=== PATIENT | male | born 1935 | race Caucasian/White ===

== ENCOUNTER 2018-05-14 15:08 | Inpatient (IN) | payer MEDICARE, OTHER ==
[2018-05-14 15:41] LABS: CHLORIDE,CL 104 mmol/L (98-107); SODIUM,NA 137 mmol/L (136-145)
--- NOTE | 2018-05-14 16:04 | PCM.HP ---
H&P History of Present Illness - General Date of Service: 05/14/18 Admit Problem/Dx: Admission Diagnosis/Problem Admission Diagnosis/Problem Congestive heart failure Source of Information: Patient, EMS Notes Reviewed History Limitations: Reports: No Limitations - History of Present Illness Initial Comments - Free Text/Narative: Patient is admitted for CHF acute on chronic, anemia and CKD. Patient has been followed closely at the clinic with labs and appointments but has been reluctant and refusing to be admitted to the hospital. Has shortness of breath, denies chest pain, history of atrial flutter s/p ablation (has been refusing to see cardiology up until last week and appointment is set up for the patient at [place]), significant pedal edema form the CHF. Patient tires out easily with any ambulation. Denies a fever. Has been noncompliant with taking Lasix as he doesnt want to spend his whole day in the bathroom and has urinary incontinence as times. Last echo was 06/2017 with EF 45-50%, mild pulmonary hypertension. Onset of Symptoms: Reports: Gradual Duration of Symptoms: Reports: Getting Worse Improves with: Reports: Rest Worsens with: Reports: Movement Associated Symptoms: Reports: Cough, Loss of Appetite, Shortness of Breath, Weakness - Related Data Allergies/Adverse Reactions: Allergies Allergy/AdvReac Type Severity Reaction Status Date / Time cephalex Allergy Unknown Other Uncoded 05/14/18 15:27 lipitor Allergy Muscle Uncoded 05/14/18 15:27 Aches pencilllin Allergy Other Uncoded 05/14/18 15:27 tramadol Allergy Nausea and Uncoded 05/14/18 15:27 Vomiting Home Medications: Home Meds Acetaminophen [Tylenol Arthritis] 650 mg PO TID 05/14/18 [History] Diclofenac Sodium [Diclofono] 2.5 gm TP BID 05/14/18 [History] Fish Oil/Irene-3 Fatty Acids [Fish Oil 1,000 MG] 1 gm PO DAILY 05/14/18 [History ] Furosemide 20 mg PO DAILY 05/14/18 [History] Metoprolol Succinate [Toprol XL 50mg] 100 mg PO DAILY 05/14/18 [History] Multivitamin [Multivitamins] 1 tab PO DAILY 05/14/18 [History] Rivaroxaban [Xarelto] 15 mg PO DAILY 05/14/18 [History] Tamsulosin [Flomax] 0.4 mg PO DAILY 05/14/18 [History] atorvaSTATin [Lipitor] 10 mg PO BEDTIME 05/14/18 [History] Past Medical History HEENT History: Reports: Hard of Hearing Cardiovascular History: Reports: Afib, Heart Murmur, High Cholesterol, Hypertension, SOB on Exertion Other Cardiovascular History: atrial flutter s/p cardiac ablation, Respiratory History: Reports: SOB Gastrointestinal History: Reports: GERD Genitourinary History: Reports: BPH, Prostate Disorder, Renal Disease Musculoskeletal History: Reports: Arthritis Psychiatric History: Reports: Other (See Below) (some short term memory loss noted) Hematologic History: Reports: Anemia Oncologic (Cancer) History: Reports: Prostate - Past Surgical History Cardiovascular Surgical History: Reports: Cardiac Ablation GI Surgical History: Reports: Hernia, Inguinal (bilateral inguinial hernia repair) Social & Family History - Family History Cardiac: Reports: Hypertension H&P Review of Systems - Review of Systems: Review Of Systems: See Below General: Reports: Weakness, Fatigue, Weight Gain HEENT: Reports: No Symptoms Pulmonary: Reports: Shortness of Breath Cardiovascular: Reports: Dyspnea on Exertion, Edema Gastrointestinal: Reports: No Symptoms Genitourinary: Reports: Incontinence Musculoskeletal: Reports: Joint Pain (right knee and right hip) Skin: Reports: No Symptoms Psychiatric: Reports: No Symptoms Neurological: Reports: No Symptoms Hematologic/Lymphatic: Reports: Anemia Immunologic: Reports: No Symptoms Exam - Exam Exam: See Below - Exam General: Alert, Oriented, Cooperative HEENT: Conjunctiva Clear, EACs Clear, EOMI, Mucosa Moist & [place], Nares Patent, Normal Nasal Septum, Posterior Pharynx Clear Neck: Supple, Trachea Midline (no JVD) Lungs: Normal Respiratory Effort, Decreased Breath Sounds, Crackles (crackles to bilat bases) Cardiovascular: Regular Rate, Normal S1, Normal S2, Irregular Rhythm, Systolic Murmur GI/Abdominal Exam: Normal Bowel Sounds, Soft, Non-Tender, No Organomegaly, No Distention, No Mass Back Exam: Normal Inspection Extremities: Pedal Edema Peripheral Pulses: 1+: Posterior Tibial (L), Posterior Tibial (R), Dorsalis Pedis (L), Dorsalis Pedis (R) Skin: Warm, Dry, Intact Neurological: Cranial Nerves Intact, Reflexes Equal Bilateral Neuro Extensive - Mental Status: Alert, Oriented x3, Normal Mood/Affect, Normal Cognition Neuro Extensive - Motor, Sensory, Reflexes: CN II-XII Intact, Normal Gait, Normal Reflexes DTR: 1+: Achilles (L), Achilles (R) Psychiatric: Alert, Normal Affect, Normal Mood - Patient Data Lab Results Last 24 hrs: Laboratory Results - last 24 hr 05/14/18 Range/Units 15:00 Sodium 137 (136-145) mmol/L Potassium 4.8 (3.5-5.1) mmol/L Chloride 104 (98-107) mmol/L Carbon Dioxide 24.2 (21.0-32.0) mmol/L BUN 39 H (7-18) mg/dL Creatinine 1.54 H (0.51-1.17) mg/dL Est Cr Clr Drug Dosing TNP Estimated GFR (MDRD) 43 mL/min Glucose 106 (74-106) mg/dL Calcium 8.0 L (8.5-10.1) mg/dL Total Bilirubin 0.7 (0.2-1.0) mg/dL AST 40 H (15-37) U/L ALT 39 (12-78) U/L Alkaline Phosphatase 347 H (46-116) IU/L Troponin I 0.029 (0.000-0.056) ng/mL C-Reactive Protein 4.4 H (<=0.9) mg/dL NT-Pro-B Natriuret Pep 62128 H (0-125) pg/mL Total Protein 6.5 (6.4-8.2) g/dL Albumin 2.5 L (3.4-5.0) g/dL Result Diagrams: 05/14/18 15:00 - Problem List (1) Congestive heart failure (CHF) SNOMED Code(s): 23163852 ICD Code: I50.9 - HEART FAILURE, UNSPECIFIED Status: Acute Problem Details: known history of atrial flutter s/p ablation Qualifiers: Heart failure type: unspecified Heart failure chronicity: acute on chronic Qualified Code(s): I50.9 - Heart failure, unspecified (2) Chronic renal disease SNOMED Code(s): 079450930 ICD Code: N18.9 - CHRONIC KIDNEY DISEASE, UNSPECIFIED Status: Acute Qualifiers: Chronic kidney disease stage: unspecified stage Qualified Code(s): N18.9 - Chronic kidney disease, unspecified (3) Anemia SNOMED Code(s): 278085361 ICD Code: D64.9 - ANEMIA, UNSPECIFIED Status: Acute Qualifiers: Anemia type: unspecified type Qualified Code(s): D64.9 - Anemia, unspecified (4) Prostate cancer SNOMED Code(s): 100057265 ICD Code: C61 - MALIGNANT NEOPLASM OF PROSTATE Status: Acute (5) Elevated alkaline phosphatase level SNOMED Code(s): 378583383 ICD Code: R74.8 - ABNORMAL LEVELS OF OTHER SERUM ENZYMES Status: Acute Problem Details: history of prostate cancer with elevated PSA over 45 Problem List Initiated/Reviewed/Updated: Yes Orders Last 24hrs: Active Orders 24 hr Category Date Time Status Patient Status [ADT] Routine ADT 05/14/18 15:25 Ordered Cardiac Monitoring [RC] CONTINUOUS Care 05/14/18 15:27 Ordered EKG Documentation Completion [RC] ASDIRECTED Care 05/14/18 15:30 Ordered Height and Weight [RC] DAILY Care 05/14/18 15:25 Ordered Intake and Output [RC] QSHIFT Care 05/14/18 15:27 Ordered May Shower [RC] ASDIRECTED Care 05/14/18 15:25 Ordered Oxygen Therapy [RC] PRN Care 05/14/18 15:25 Ordered Peripheral IV Care [RC] . DIRECTED Care 05/14/18 15:28 Ordered RT Aerosol Therapy [RC] ASDIRECTED Care 05/14/18 15:28 Ordered Up With Assistance [RC] ASDIRECTED Care 05/14/18 15:25 Ordered VTE/DVT Education [RC] PER UNIT ROUTINE Care 05/14/18 15:25 Ordered Vital Signs [RC] Q4H Care 05/14/18 15:25 Ordered Consult to Case Management/Farm Mechanic Apprentice [CONS] Cons 05/14/18 15:25 Ordered Routine PT Evaluation and Treatment [CONS] Routine Cons 05/14/18 15:25 Ordered Regular Diet [DIET] Diet 05/14/18 Dinner Ordered Chest 2V [CR] Routine Exams 05/14/18 15:25 Ordered C-REACTIVE PROTEIN [CHEM] DAILY Lab 05/15/18 05:11 Ordered C-REACTIVE PROTEIN [CHEM] DAILY Lab 05/16/18 05:11 Ordered C-REACTIVE PROTEIN [CHEM] DAILY Lab 05/17/18 05:11 Ordered C-REACTIVE PROTEIN [CHEM] DAILY Lab 05/18/18 05:11 Ordered CBC WITH AUTO DIFF [HEME] DAILY Lab 05/15/18 05:11 Ordered CBC WITH AUTO DIFF [HEME] DAILY Lab 05/16/18 05:11 Ordered CBC WITH AUTO DIFF [HEME] DAILY Lab 05/17/18 05:11 Ordered CBC WITH AUTO DIFF [HEME] DAILY Lab 05/18/18 05:11 Ordered COMPREHENSIVE METABOLIC PN,CMP [CHEM] DAILY Lab 05/15/18 05:11 Ordered COMPREHENSIVE METABOLIC PN,CMP [CHEM] DAILY Lab 05/16/18 05:11 Ordered COMPREHENSIVE METABOLIC PN,CMP [CHEM] DAILY Lab 05/17/18 05:11 Ordered COMPREHENSIVE METABOLIC PN,CMP [CHEM] DAILY Lab 05/18/18 05:11 Ordered CULTURE URINE [RM] Stat Lab 05/14/18 15:25 Ordered INR,PT,PROTHROMBIN TIME [COAG] Routine Lab 05/14/18 15:00 Received PRO B-TYPE NATRIUR PEPT,BNPPRO [CHEM] DAILY Lab 05/15/18 05:11 Ordered PRO B-TYPE NATRIUR PEPT,BNPPRO [CHEM] DAILY Lab 05/16/18 05:11 Ordered PRO B-TYPE NATRIUR PEPT,BNPPRO [CHEM] DAILY Lab 05/17/18 05:11 Ordered PRO B-TYPE NATRIUR PEPT,BNPPRO [CHEM] DAILY Lab 05/18/18 05:11 Ordered TROPONIN I [CHEM] AM Lab 05/15/18 05:11 Ordered UA W/MICROSCOPIC [URIN] Routine Lab 05/14/18 15:25 Ordered Albuterol/Ipratropium [DuoNeb 3.0-0.5 MG/3 ML] Med 05/14/18 15:25 Ordered 3 ml NEB Q4H PRN Sennosides [Senna] Med 05/14/18 15:25 Ordered 1 mg PO BID PRN Sodium Chloride 0.9% [Saline Flush] Med 05/14/18 15:25 Ordered 10 ml FLUSH ASDIRECTED PRN Peripheral IV Insertion Adult [OM.PC] Routine Oth 05/14/18 15:25 Ordered Saline Lock Insert [OM.PC] Routine Oth 05/14/18 15:25 Ordered Resuscitation Status Routine Resus Stat 05/14/18 15:25 Ordered EKG 12 Lead [EK] Routine Ther 05/14/18 15:25 Ordered Medication Orders Albuterol/Ipratropium (Duoneb 3.0-0.5 Mg/3 Ml) 3 ml NEB Q4H PRN PRN Reason: Dyspnea Senna (Senna) 8.6 mg PO BID PRN PRN Reason: Constipation Sodium Chloride (Saline Flush) 10 ml FLUSH ASDIRECTED PRN PRN Reason: Keep Vein Open Assessment/Plan Comment:: Patient is admitted to the inpatient services, needing IV Lasix due to significantly elevated proBNP. Also known to have low hgb, needing further work- up. Cr leveled, will need monitoring with IV Lasix treatment. Elevated alk phos with recent elevation of PSA, needing bone scan to check for possible metastatic disease. Patient is NO CODE, agrees to be admitted to [place]. Discussed the patient's condition with his son, Brady. will recheck labs in the morning. Telemetry on. Discussed with Dr Sheets. Connie Cuello,CLIENT CARE MANAGER
[2018-05-14] MEDS ORDERED: Furosemide 40 MG/4 ML VIAL IVPUSH ONE (17:03)
[2018-05-14] MEDS: Sodium Chloride 0.9% 10 ML Syringe FLUSH PRN (17:29)
[2018-05-14] MEDS: Acetaminophen 650 MG Tab.ER PO PRN (17:30)
[2018-05-14] MEDS ORDERED: Albuterol/Ipratropium 3.0-0.5 MG/3 ML Neb Soln NEB PRN (18:00)
[2018-05-14] MEDS: atorvaSTATin 10 MG Tab PO SCH (19:33)
[2018-05-15] MEDS: Acetaminophen 650 MG Tab.ER PO PRN ×3 (04:54→20:47)
[2018-05-15] MEDS: Menthol/Methyl Salicylate 85 GM Tube TOP PRN ×2 (04:57→20:48)
[2018-05-15] MEDS: Rivaroxaban 10 MG Tab PO SCH (07:24)
[2018-05-15] MEDS: Multivitamin Tab PO SCH (07:24)
[2018-05-15] MEDS: Sennosides 8.6 MG Tab PO PRN ×2 (07:24→22:55)
[2018-05-15] MEDS: Tamsulosin 0.4 MG Cap.ER PO SCH (07:24)
[2018-05-15] MEDS: Metoprolol Succinate 50 MG Tab.ER PO SCH (07:24)
[2018-05-15] MEDS: Sodium Chloride 0.9% 10 ML Syringe FLUSH PRN (07:25)
[2018-05-15] MEDS: Furosemide 40 MG/4 ML VIAL IVPUSH SCH (07:25)
--- NOTE | 2018-05-15 12:39 | PCM.PN ---
- General Info Date of Service: 05/15/18 Admission Dx/Problem (Free Text): Admission Diagnosis/Problem Admission Diagnosis/Problem Congestive heart failure Functional Status: Reports: Tolerating Diet, Ambulating - Review of Systems General: Reports: Weakness HEENT: Reports: No Symptoms Pulmonary: Reports: Shortness of Breath Cardiovascular: Reports: No Symptoms Gastrointestinal: Reports: Constipation (but BMx2) Genitourinary: Reports: Frequency, Urgency, Retention Musculoskeletal: Reports: No Symptoms Neurological: Reports: Weakness Psychiatric: Reports: No Symptoms - Patient Data Vitals - Most Recent: Last Vital Signs Temp 98.1 F 05/15/18 07:22 Pulse 68 05/15/18 07:24 Resp 20 05/15/18 07:22 BP 143/68 H 05/15/18 07:24 Pulse Ox 96 05/15/18 07:22 Weight - Most Recent: 198 lb 11.207 oz I&O - Last 24 Hours: Intake & Output 05/14/18 05/15/18 05/15/18 22:59 06:59 14:59 Intake Total 440 300 840 Output Total 650 1000 500 Balance -210 -700 340 Lab Results Last 24 Hours: Laboratory Results - last 24 hr 05/14/18 05/14/18 05/14/18 Range/Units 15:00 15:00 18:30 WBC (4.0-10.2) K/uL RBC (4.33-5.41) M/uL Hgb (13.1-16.8) g/dL Hct (39.0-49.0) % MCV (84.0-98.0) fL MCH (28.2-33.3) pg MCHC (31.7-36.0) g/dL RDW (11.2-14.1) % Plt Count (150-350) K/uL Neut % (Auto) (45.0-80.0) % Lymph % (Auto) (10.0-50.0) % [place] % (Auto) (2.0-14.0) % Eos % (Auto) (0.0-5.0) % Baso % (Auto) (0.0-2.0) % Neut # (Auto) (1.40-7.00) K/uL Lymph # (Auto) (0.50-3.50) K/uL [place] # (Auto) (0.00-1.00) K/uL Eos # (Auto) (0.00-0.50) K/uL Baso # (Auto) (0.00-0.20) K/uL PT 16.0 H (9.8-11.7) SEC INR 1.5 Sodium 137 (136-145) mmol/L Potassium 4.8 (3.5-5.1) mmol/L Chloride 104 (98-107) mmol/L Carbon Dioxide 24.2 (21.0-32.0) mmol/L BUN 39 H (7-18) mg/dL Creatinine 1.54 H (0.51-1.17) mg/dL Est Cr Clr Drug Dosing TNP Estimated GFR (MDRD) 43 mL/min Glucose 106 (74-106) mg/dL Calcium 8.0 L (8.5-10.1) mg/dL Total Bilirubin 0.7 (0.2-1.0) mg/dL AST 40 H (15-37) U/L ALT 39 (12-78) U/L Alkaline Phosphatase 347 H (46-116) IU/L Troponin I 0.029 (0.000-0.056) ng/mL C-Reactive Protein 4.4 H (<=0.9) mg/dL NT-Pro-B Natriuret Pep 75783 H (0-125) pg/mL Total Protein 6.5 (6.4-8.2) g/dL Albumin 2.5 L (3.4-5.0) g/dL Specimen Type Urinblad Urine Color Dark yellow Urine Appearance Cloudy Urine pH 5.5 (5.0-9.0) Ur Specific [place] 1.015 (1.005-1.030) Urine Protein 30 H (NEGATIVE) mg/dL Urine Glucose (UA) Negative (NEGATIVE) mg/dL Urine Ketones Negative (NEGATIVE) mg/dL Urine Occult Blood Large H (NEGATIVE) Urine Nitrite Negative (NEGATIVE) Urine Bilirubin Negative (NEGATIVE) Urine Urobilinogen 0.2 (0.2-1.0) E.U./dL Ur Leukocyte Esterase Negative (NEGATIVE) Urine RBC 50-75 H /HPF Urine WBC 0-5 /HPF Ur Epithelial Cells Occasional /LPF Urine Bacteria Few (NONE TO FEW) /HPF 05/15/18 05/15/18 Range/Units 07:00 07:00 WBC 9.2 (4.0-10.2) K/uL RBC 3.09 L (4.33-5.41) M/uL Hgb 9.2 L D (13.1-16.8) g/dL Hct 27.9 L (39.0-49.0) % MCV 90.3 D (84.0-98.0) fL MCH 29.8 (28.2-33.3) pg MCHC 33.0 (31.7-36.0) g/dL RDW 17.2 H (11.2-14.1) % Plt Count 254 (150-350) K/uL Neut % (Auto) 72.8 (45.0-80.0) % Lymph % (Auto) 11.3 (10.0-50.0) % [place] % (Auto) 13.6 (2.0-14.0) % Eos % (Auto) 2.1 (0.0-5.0) % Baso % (Auto) 0.2 (0.0-2.0) % Neut # (Auto) 6.67 (1.40-7.00) K/uL Lymph # (Auto) 1.03 (0.50-3.50) K/uL [place] # (Auto) 1.24 H (0.00-1.00) K/uL Eos # (Auto) 0.19 (0.00-0.50) K/uL Baso # (Auto) 0.02 (0.00-0.20) K/uL PT (9.8-11.7) SEC INR Sodium 137 (136-145) mmol/L Potassium 4.1 (3.5-5.1) mmol/L Chloride 103 (98-107) mmol/L Carbon Dioxide 23.0 (21.0-32.0) mmol/L BUN 39 H (7-18) mg/dL Creatinine 1.50 H (0.51-1.17) mg/dL Est Cr Clr Drug Dosing 35.47 Estimated GFR (MDRD) 45 mL/min Glucose 101 (74-106) mg/dL Calcium 8.0 L (8.5-10.1) mg/dL Total Bilirubin 0.9 (0.2-1.0) mg/dL AST 35 (15-37) U/L ALT 32 (12-78) U/L Alkaline Phosphatase 300 H (46-116) IU/L Troponin I 0.035 (0.000-0.056) ng/mL C-Reactive Protein 6.5 H (<=0.9) mg/dL NT-Pro-B Natriuret Pep 85839 H (0-125) pg/mL Total Protein 6.2 L (6.4-8.2) g/dL Albumin 2.4 L (3.4-5.0) g/dL Specimen Type Urine Color Urine Appearance Urine pH (5.0-9.0) Ur Specific [place] (1.005-1.030) Urine Protein (NEGATIVE) mg/dL Urine Glucose (UA) (NEGATIVE) mg/dL Urine Ketones (NEGATIVE) mg/dL Urine Occult Blood (NEGATIVE) Urine Nitrite (NEGATIVE) Urine Bilirubin (NEGATIVE) Urine Urobilinogen (0.2-1.0) E.U./dL Ur Leukocyte Esterase (NEGATIVE) Urine RBC /HPF Urine WBC /HPF Ur Epithelial Cells /LPF Urine Bacteria (NONE TO FEW) /HPF [place] Results Last 24 Hours: Microbiology 05/15/18 08:30 Stool Occult Blood (CHOLO) - Final Stool / Feces NEGATIVE OCCULT BLOOD 05/14/18 18:30 Urine Culture - Preliminary Urine, Bladder NO GROWTH AFTER 1 DAY 05/15/18 05:30 Stool Occult Blood (CHOLO) - Final Stool / Feces NEGATIVE OCCULT BLOOD 05/14/18 19:50 Stool Occult Blood (CHOLO) - Final Stool / Feces NEGATIVE OCCULT BLOOD Med Orders - Current: Current Medications Acetaminophen (Tylenol Arthritis Pain) 650 mg PO TID PRN PRN Reason: Pain Last Admin: 05/15/18 04:54 Dose: 650 mg Albuterol/Ipratropium (Duoneb 3.0-0.5 Mg/3 Ml) 3 ml NEB Q4H PRN PRN Reason: Dyspnea Atorvastatin Calcium (Lipitor) 10 mg PO BEDTIME GREG Last Admin: 05/14/18 19:33 Dose: 10 mg Furosemide (Lasix) 40 mg IVPUSH DAILY GREG Last Admin: 05/15/18 07:25 Dose: 40 mg Furosemide (Lasix) 40 mg IVPUSH NOW ONE Stop: 05/15/18 13:01 Methyl Salicylate (Icy Hot Cream) 0 gm TOP Q6H PRN PRN Reason: Pain Last Admin: 05/15/18 04:57 Dose: 1 applic Metoprolol Succinate (Toprol Xl) 100 mg PO DAILY [facility] Last Admin: 05/15/18 07:24 Dose: 100 mg Multivitamins/Minerals/Vitamin C (Tab-A-Cathy) 1 tab PO DAILY [facility] Last Admin: 05/15/18 07:24 Dose: 1 tab Rivaroxaban (Xarelto) 15 mg PO DAILY [facility] Last Admin: 05/15/18 07:24 Dose: 15 mg Senna (Senna) 8.6 mg PO BID PRN PRN Reason: Constipation Last Admin: 05/15/18 07:24 Dose: 8.6 mg Sodium Chloride (Saline Flush) 10 ml FLUSH ASDIRECTED PRN PRN Reason: Keep Vein Open Last Admin: 05/15/18 07:25 Dose: 10 ml Sodium Chloride (Saline Flush) 10 ml FLUSH Q12HR [facility] Tamsulosin HCl (Flomax) 0.4 mg PO DAILY [facility] Last Admin: 05/15/18 07:24 Dose: 0.4 mg Discontinued Medications Furosemide (Lasix) 40 mg IVPUSH NOW ONE Stop: 05/14/18 17:04 Last Admin: 05/14/18 17:29 Dose: 40 mg - Exam Quality Assessment: Urine Catheter General: Alert, Cooperative HEENT: Mucous Membr. Moist/[place] Neck: Trachea Midline, No JVD Lungs: Normal Respiratory Effort, Decreased Breath Sounds Cardiovascular: Regular Rate, Regular Rhythm GI/Abdominal Exam: Soft, Non-Tender, No Distention (Male) Exam: Deferred Back Exam: Normal Inspection Extremities: Non-Tender, Pedal Edema Skin: Warm, Dry, Intact Wound/Incisions: Healing Well Neurological: No New Focal Deficit Psy/Mental Status: Alert, Normal Affect, Normal Mood - Problem List & Annotations (1) Anemia SNOMED Code(s): 616280829 Code(s): D64.9 - ANEMIA, UNSPECIFIED Status: Acute Current Visit: Yes Qualifiers: Anemia type: unspecified type Qualified Code(s): D64.9 - Anemia, unspecified (2) Chronic renal disease SNOMED Code(s): 265471188 Code(s): N18.9 - CHRONIC KIDNEY DISEASE, UNSPECIFIED Status: Acute Current Visit: Yes Qualifiers: Chronic kidney disease stage: unspecified stage Qualified Code(s): N18.9 - Chronic kidney disease, unspecified (3) Congestive heart failure (CHF) SNOMED Code(s): 36465634 Code(s): I50.9 - HEART FAILURE, UNSPECIFIED Status: Acute Current Visit: Yes Qualifiers: Heart failure type: unspecified Heart failure chronicity: acute on chronic Qualified Code(s): I50.9 - Heart failure, unspecified Annotation/Comment:: known history of atrial flutter s/p ablation (4) Elevated alkaline phosphatase level SNOMED Code(s): 023030424 Code(s): R74.8 - ABNORMAL LEVELS OF OTHER SERUM ENZYMES Status: Acute Current Visit: Yes Annotation/Comment:: history of prostate cancer with elevated PSA over 45 (5) Prostate cancer SNOMED Code(s): 427052477 Code(s): C61 - MALIGNANT NEOPLASM OF PROSTATE Status: Acute Current Visit : Yes - Problem List Review Problem List Initiated/Reviewed/Updated: Yes - My Orders Last 24 Hours: My Active Orders 05/15/18 12:05 Discontinue Telemetry Monitoring [Cardiac Monitoring Discontinue] [RC] Click to Edit 05/15/18 13:00 Furosemide [Lasix] 40 mg IVPUSH NOW ONE 05/15/18 20:00 Sodium Chloride 0.9% [Saline Flush] 10 ml FLUSH Q12HR 05/16/18 05:11 TROPONIN I [CHEM] Routine - Plan Plan:: Patient is admitted to the inpatient services, needing IV Lasix due to significantly elevated proBNP. Also known to have low hgb, needing further work- up. Cr leveled, will need monitoring with IV Lasix treatment. Elevated alk phos with recent elevation of PSA, needing bone scan to check for possible metastatic disease. Patient is NO CODE, agrees to be admitted to [place]. Discussed the patient's condition with his son, Brady. will recheck labs in the morning. Telemetry on. Discussed with Dr Juarez. Connie Cuello,[facility] 05/15/18 Larry Soliz MD Had urinary retention last night with 800 cc retained urine. Leg edema decreased but still present. Continue IV lasix and valencia catheter.
[2018-05-15] MEDS ORDERED: Furosemide 40 MG/4 ML VIAL IVPUSH ONE (13:00)
[2018-05-15] MEDS: atorvaSTATin 10 MG Tab PO SCH (19:22)
[2018-05-15] MEDS: Sodium Chloride 0.9% 10 ML Syringe FLUSH SCH (19:23)
[2018-05-15] MEDS: Temazepam 15 MG Cap PO PRN ×2 (20:46→22:55)
[2018-05-16] MEDS: Sodium Chloride 0.9% 10 ML Syringe FLUSH SCH ×2 (07:56→19:21)
[2018-05-16] MEDS: Menthol/Methyl Salicylate 85 GM Tube TOP PRN ×2 (07:56→18:08)
[2018-05-16] MEDS: Furosemide 40 MG/4 ML VIAL IVPUSH SCH (07:56)
[2018-05-16] MEDS: Multivitamin Tab PO SCH (07:57)
[2018-05-16] MEDS: Acetaminophen 650 MG Tab.ER PO PRN ×2 (07:57→18:08)
[2018-05-16] MEDS: Tamsulosin 0.4 MG Cap.ER PO SCH (07:58)
[2018-05-16] MEDS: Metoprolol Succinate 50 MG Tab.ER PO SCH (07:58)
[2018-05-16] MEDS: Sennosides 8.6 MG Tab PO PRN (07:59)
[2018-05-16] MEDS: Rivaroxaban 10 MG Tab PO SCH (07:59)
--- NOTE | 2018-05-16 15:48 | PCM.PN ---
- General Info Date of Service: 05/16/18 Admission Dx/Problem (Free Text): Admission Diagnosis/Problem Admission Diagnosis/Problem Congestive heart failure Functional Status: Reports: Tolerating Diet, Ambulating - Review of Systems General: Reports: Weakness HEENT: Reports: No Symptoms Pulmonary: Reports: Shortness of Breath Cardiovascular: Reports: No Symptoms Gastrointestinal: Reports: No Symptoms Genitourinary: Reports: Retention Musculoskeletal: Reports: No Symptoms Skin: Reports: No Symptoms Neurological: Reports: No Symptoms Psychiatric: Reports: No Symptoms - Patient Data Vitals - Most Recent: Last Vital Signs Temp 97.5 F 05/16/18 12:00 Pulse 68 05/16/18 12:00 Resp 18 05/16/18 12:00 BP 133/55 L 05/16/18 12:00 Pulse Ox 98 05/16/18 12:00 Weight - Most Recent: 193 lb 3.2 oz I&O - Last 24 Hours: Intake & Output 05/16/18 05/16/18 05/16/18 06:59 14:59 22:59 Intake Total 1040 Output Total 1600 1250 Balance -1600 -210 Lab Results Last 24 Hours: Laboratory Results - last 24 hr 05/15/18 05/16/18 05/16/18 Range/Units 07:00 01:40 06:50 WBC 8.0 8.9 (3.9-11.3) x10-3 ul RBC 3.18 L 3.16 L (4.52-5.90) x10-6 ul Hgb 9.6 L 9.4 L (14.0-18.0) gm/dL Hct 29.1 L 28.6 L (42.0-52.0) % MCV 91 90.5 (83-99) fL MCH 30.1 29.7 (28.0-32.0) pg MCHC 32.9 32.9 (32.0-36.0) g/dL RDW 18.4 H 17.3 H (11.2-15.2) Plt Count 241 261 (150-400) x10-3 ul Neut % (Auto) 68.5 (45.0-80.0) % Lymph % (Auto) 14.5 (10.0-50.0) % Thomas % (Auto) 12.9 (2.0-14.0) % Eos % (Auto) 4.0 (0.0-5.0) % Baso % (Auto) 0.1 (0.0-2.0) % Neut # (Auto) 6.11 (1.40-7.00) K/uL Lymph # (Auto) 1.29 (0.50-3.50) K/uL Thomas # (Auto) 1.15 H (0.00-1.00) K/uL Eos # (Auto) 0.36 (0.00-0.50) K/uL Baso # (Auto) 0.01 (0.00-0.20) K/uL Neutrophils % (Manual) 75 % Band Neuts % (Manual) 0 % Lymphocytes % (Manual) 12 % Monocytes % (Manual) 10 % Eosinophils % (Manual) 3 % Basophils % (Manual) 0 % Neutrophils # (Manual) 6.00 (1.80-7.00) x10-3 ul Band Neutrophils # Man 0.00 (0.00-0.70) x10-3 ul Lymphocytes # (Manual) 0.96 L (1.00-4.80) x10-3 ul Monocytes # (Manual) 0.80 (0.00-0.80) x10-3 ul Eosinophils # (Manual) 0.24 (0.00-0.45) x10-3 ul Basophils # (Manual) 0.00 (0.00-0.20) x10-3 ul RBC/WBC/PLT Morphology Abnormal Platelet Estimate Adequate Ovalocytes 2+ RBC Fragments 1+ Smear Path Review Path rpt Absolute Retic 0.0433 (0.0200-0.1000) Percent Retic 1.4 (0.3-2.2) % Sodium (136-145) mmol/L Potassium (3.5-5.1) mmol/L Chloride (98-107) mmol/L Carbon Dioxide (21.0-32.0) mmol/L BUN (7-18) mg/dL Creatinine (0.51-1.17) mg/dL Est Cr Clr Drug Dosing mL/min Estimated GFR (MDRD) mL/min Glucose (74-106) mg/dL POC Glucose 117 H (65-110) mg/dl Calcium (8.5-10.1) mg/dL Total Bilirubin (0.2-1.0) mg/dL AST (15-37) U/L ALT (12-78) U/L Alkaline Phosphatase (46-116) IU/L Troponin I (0.000-0.056) ng/mL C-Reactive Protein (<=0.9) mg/dL NT-Pro-B Natriuret Pep (0-125) pg/mL Total Protein (6.4-8.2) g/dL Albumin (3.4-5.0) g/dL 05/16/18 Range/Units 06:50 WBC (3.9-11.3) x10-3 ul RBC (4.52-5.90) x10-6 ul Hgb (14.0-18.0) gm/dL Hct (42.0-52.0) % MCV (83-99) fL MCH (28.0-32.0) pg MCHC (32.0-36.0) g/dL RDW (11.2-15.2) Plt Count (150-400) x10-3 ul Neut % (Auto) (45.0-80.0) % Lymph % (Auto) (10.0-50.0) % Thomas % (Auto) (2.0-14.0) % Eos % (Auto) (0.0-5.0) % Baso % (Auto) (0.0-2.0) % Neut # (Auto) (1.40-7.00) K/uL Lymph # (Auto) (0.50-3.50) K/uL Thomas # (Auto) (0.00-1.00) K/uL Eos # (Auto) (0.00-0.50) K/uL Baso # (Auto) (0.00-0.20) K/uL Neutrophils % (Manual) % Band Neuts % (Manual) % Lymphocytes % (Manual) % Monocytes % (Manual) % Eosinophils % (Manual) % Basophils % (Manual) % Neutrophils # (Manual) (1.80-7.00) x10-3 ul Band Neutrophils # Man (0.00-0.70) x10-3 ul Lymphocytes # (Manual) (1.00-4.80) x10-3 ul Monocytes # (Manual) (0.00-0.80) x10-3 ul Eosinophils # (Manual) (0.00-0.45) x10-3 ul Basophils # (Manual) (0.00-0.20) x10-3 ul RBC/WBC/PLT Morphology Platelet Estimate Ovalocytes RBC Fragments Smear Path Review Absolute Retic (0.0200-0.1000) Percent Retic (0.3-2.2) % Sodium 139 (136-145) mmol/L Potassium 4.1 (3.5-5.1) mmol/L Chloride 103 (98-107) mmol/L Carbon Dioxide 26.9 (21.0-32.0) mmol/L BUN 41 H (7-18) mg/dL Creatinine 1.46 H (0.51-1.17) mg/dL Est Cr Clr Drug Dosing 36.57 mL/min Estimated GFR (MDRD) 46 mL/min Glucose 90 (74-106) mg/dL POC Glucose (65-110) mg/dl Calcium 7.8 L (8.5-10.1) mg/dL Total Bilirubin 0.6 (0.2-1.0) mg/dL AST 39 H (15-37) U/L ALT 30 (12-78) U/L Alkaline Phosphatase 297 H (46-116) IU/L Troponin I 0.036 (0.000-0.056) ng/mL C-Reactive Protein 8.4 H (<=0.9) mg/dL NT-Pro-B Natriuret Pep 82390 H (0-125) pg/mL Total Protein 6.2 L (6.4-8.2) g/dL Albumin 2.2 L (3.4-5.0) g/dL [place] Results Last 24 Hours: Microbiology 05/14/18 18:30 Urine Culture - Final Urine, Bladder MIXED POSITIVE GALEN DAY 2 Med Orders - Current: Current Medications Acetaminophen (Tylenol Arthritis Pain) 650 mg PO TID PRN PRN Reason: Pain Last Admin: 05/16/18 07:57 Dose: 650 mg Albuterol/Ipratropium (Duoneb 3.0-0.5 Mg/3 Ml) 3 ml NEB Q4H PRN PRN Reason: Dyspnea Atorvastatin Calcium (Lipitor) 10 mg PO BEDTIME GREG Last Admin: 05/15/18 19:22 Dose: 10 mg Furosemide (Lasix) 40 mg IVPUSH DAILY GREG Last Admin: 05/16/18 07:56 Dose: 40 mg Methyl Salicylate (Icy Hot Cream) 0 gm TOP Q6H PRN PRN Reason: Pain Last Admin: 05/16/18 07:56 Dose: 1 applic Metoprolol Succinate (Toprol Xl) 100 mg PO DAILY [facility] Last Admin: 05/16/18 07:58 Dose: 100 mg Multivitamins/Minerals/Vitamin C (Tab-A-Cathy) 1 tab PO DAILY [facility] Last Admin: 05/16/18 07:57 Dose: 1 tab Rivaroxaban (Xarelto) 15 mg PO DAILY [facility] Last Admin: 05/16/18 07:59 Dose: 15 mg Senna (Senna) 8.6 mg PO BID PRN PRN Reason: Constipation Last Admin: 05/16/18 07:59 Dose: 8.6 mg Sodium Chloride (Saline Flush) 10 ml FLUSH ASDIRECTED PRN PRN Reason: Keep Vein Open Last Admin: 05/15/18 07:25 Dose: 10 ml Sodium Chloride (Saline Flush) 10 ml FLUSH Q12HR [facility] Last Admin: 05/16/18 07:56 Dose: 10 ml Tamsulosin HCl (Flomax) 0.4 mg PO DAILY [facility] Last Admin: 05/16/18 07:58 Dose: 0.4 mg Temazepam (Restoril) 15 mg PO BEDTIME PRN PRN Reason: insomnia Last Admin: 05/15/18 22:55 Dose: 15 mg Discontinued Medications Furosemide (Lasix) 40 mg IVPUSH NOW ONE Stop: 05/14/18 17:04 Last Admin: 05/14/18 17:29 Dose: 40 mg Furosemide (Lasix) 40 mg IVPUSH NOW ONE Stop: 05/15/18 13:01 Last Admin: 05/15/18 13:30 Dose: 40 mg - Exam Quality Assessment: Urine Catheter General: Alert, Cooperative, No Acute Distress HEENT: Mucous Membr. Moist/[place] Neck: Trachea Midline, No JVD Lungs: Normal Respiratory Effort, Decreased Breath Sounds Cardiovascular: Regular Rate, Regular Rhythm GI/Abdominal Exam: Soft, Non-Tender (Male) Exam: Deferred Back Exam: Normal Inspection Extremities: Pedal Edema (improving) Skin: Warm, Dry, Intact Neurological: No New Focal Deficit Psy/Mental Status: Alert, Normal Affect, Normal Mood - Problem List & Annotations (1) Anemia SNOMED Code(s): 988419209 Code(s): D64.9 - ANEMIA, UNSPECIFIED Status: Acute Current Visit: Yes Qualifiers: Anemia type: unspecified type Qualified Code(s): D64.9 - Anemia, unspecified (2) Chronic renal disease SNOMED Code(s): 717357554 Code(s): N18.9 - CHRONIC KIDNEY DISEASE, UNSPECIFIED Status: Acute Current Visit: Yes Qualifiers: Chronic kidney disease stage: unspecified stage Qualified Code(s): N18.9 - Chronic kidney disease, unspecified (3) Congestive heart failure (CHF) SNOMED Code(s): 07236624 Code(s): I50.9 - HEART FAILURE, UNSPECIFIED Status: Acute Current Visit: Yes Qualifiers: Heart failure type: unspecified Heart failure chronicity: acute on chronic Qualified Code(s): I50.9 - Heart failure, unspecified Annotation/Comment:: known history of atrial flutter s/p ablation (4) Elevated alkaline phosphatase level SNOMED Code(s): 109176711 Code(s): R74.8 - ABNORMAL LEVELS OF OTHER SERUM ENZYMES Status: Acute Current Visit: Yes Annotation/Comment:: history of prostate cancer with elevated PSA over 45 (5) Prostate cancer SNOMED Code(s): 755213942 Code(s): C61 - MALIGNANT NEOPLASM OF PROSTATE Status: Acute Current Visit : Yes - Problem List Review Problem List Initiated/Reviewed/Updated: Yes - My Orders Last 24 Hours: My Active Orders 05/15/18 20:00 Sodium Chloride 0.9% [Saline Flush] 10 ml FLUSH Q12HR Temazepam [Restoril] 15 mg PO BEDTIME PRN 05/16/18 06:50 ALK PHOS ISOENZYME [REF] Routine 05/16/18 07:00 Renal Comp [US] Routine 05/16/18 16:00 Furosemide [Lasix] 40 mg IVPUSH NOW ONE - Plan Plan:: Patient is admitted to the inpatient services, needing IV Lasix due to significantly elevated proBNP. Also known to have low hgb, needing further work- up. Cr leveled, will need monitoring with IV Lasix treatment. Elevated alk phos with recent elevation of PSA, needing bone scan to check for possible metastatic disease. Patient is NO CODE, agrees to be admitted to [place]. Discussed the patient's condition with his son, Brady. will recheck labs in the morning. Telemetry on. Discussed with Dr Juarez. Connie Cuello,[employer] 05/15/18 Larry Soliz MD Had urinary retention last night with 800 cc retained urine. Leg edema decreased but still present. Continue IV lasix and valencia catheter. 05/16/18 Larry Soliz MD Continues to feel better. Pro-BNP continues to decrease. H/H noted. CRP has increased. More lasix.
[2018-05-16] MEDS ORDERED: Furosemide 40 MG/4 ML VIAL IVPUSH ONE (16:00)
[2018-05-16] MEDS: Temazepam 15 MG Cap PO PRN ×2 (19:21→23:18)
[2018-05-16] MEDS: atorvaSTATin 10 MG Tab PO SCH (19:21)
[2018-05-17] MEDS: Menthol/Methyl Salicylate 85 GM Tube TOP PRN ×3 (02:31→19:43)
[2018-05-17] MEDS: Sennosides 8.6 MG Tab PO PRN ×2 (02:31→22:30)
[2018-05-17] MEDS: Acetaminophen 650 MG Tab.ER PO PRN ×3 (03:09→23:58)
[2018-05-17] MEDS: Metoprolol Succinate 50 MG Tab.ER PO SCH (07:51)
[2018-05-17] MEDS: Multivitamin Tab PO SCH (07:51)
[2018-05-17] MEDS: Tamsulosin 0.4 MG Cap.ER PO SCH (07:51)
[2018-05-17] MEDS: Rivaroxaban 10 MG Tab PO SCH (07:51)
[2018-05-17] MEDS: Furosemide 40 MG/4 ML VIAL IVPUSH SCH (07:52)
[2018-05-17] MEDS: Sodium Chloride 0.9% 10 ML Syringe FLUSH SCH ×2 (07:53→19:37)
--- NOTE | 2018-05-17 17:01 | PCM.PN ---
- General Info Date of Service: 05/17/18 Admission Dx/Problem (Free Text): Admission Diagnosis/Problem Admission Diagnosis/Problem Congestive heart failure Functional Status: Reports: Tolerating Diet - Review of Systems General: Reports: Weakness (improving) HEENT: Reports: No Symptoms Pulmonary: Reports: Shortness of Breath (improved) Cardiovascular: Reports: No Symptoms Gastrointestinal: Reports: No Symptoms Genitourinary: Reports: Retention Musculoskeletal: Reports: No Symptoms Skin: Reports: No Symptoms Neurological: Reports: No Symptoms Psychiatric: Reports: No Symptoms - Patient Data Vitals - Most Recent: Last Vital Signs Temp 97.7 F 05/17/18 16:00 Pulse 73 05/17/18 16:00 Resp 18 05/17/18 16:00 BP 132/55 L 05/17/18 16:00 Pulse Ox 96 05/17/18 16:00 Weight - Most Recent: 191 lb 11.2 oz I&O - Last 24 Hours: Intake & Output 05/17/18 05/17/18 05/17/18 06:59 14:59 22:59 Intake Total 600 950 180 Output Total 1300 2050 600 Balance -700 -1100 -420 Lab Results Last 24 Hours: Laboratory Results - last 24 hr 05/17/18 05/17/18 Range/Units 07:10 07:10 WBC 8.9 (4.0-10.2) K/uL RBC 3.06 L (4.33-5.41) M/uL Hgb 9.1 L (13.1-16.8) g/dL Hct 27.3 L (39.0-49.0) % MCV 89.2 (84.0-98.0) fL MCH 29.7 (28.2-33.3) pg MCHC 33.3 (31.7-36.0) g/dL RDW 16.6 H (11.2-14.1) % Plt Count 270 (150-350) K/uL Neut % (Auto) 65.6 (45.0-80.0) % Lymph % (Auto) 14.1 (10.0-50.0) % [place] % (Auto) 14.9 H (2.0-14.0) % Eos % (Auto) 5.3 H (0.0-5.0) % Baso % (Auto) 0.1 (0.0-2.0) % Neut # (Auto) 5.86 (1.40-7.00) K/uL Lymph # (Auto) 1.26 (0.50-3.50) K/uL Randolph # (Auto) 1.33 H (0.00-1.00) K/uL Eos # (Auto) 0.47 (0.00-0.50) K/uL Baso # (Auto) 0.01 (0.00-0.20) K/uL Sodium 136 (136-145) mmol/L Potassium 4.3 (3.5-5.1) mmol/L Chloride 101 (98-107) mmol/L Carbon Dioxide 26.1 (21.0-32.0) mmol/L BUN 40 H (7-18) mg/dL Creatinine 1.34 H (0.51-1.17) mg/dL Est Cr Clr Drug Dosing 39.85 mL/min Estimated GFR (MDRD) 51 mL/min Glucose 93 (74-106) mg/dL Calcium 7.7 L (8.5-10.1) mg/dL Total Bilirubin 0.5 (0.2-1.0) mg/dL AST 45 H (15-37) U/L ALT 32 (12-78) U/L Alkaline Phosphatase 300 H (46-116) IU/L C-Reactive Protein 7.1 H (<=0.9) mg/dL NT-Pro-B Natriuret Pep 96102 H (0-125) pg/mL Total Protein 6.0 L (6.4-8.2) g/dL Albumin 2.1 L (3.4-5.0) g/dL Med Orders - Current: Current Medications Acetaminophen (Tylenol Arthritis Pain) 650 mg PO TID PRN PRN Reason: Pain Last Admin: 05/17/18 13:59 Dose: 650 mg Albuterol/Ipratropium (Duoneb 3.0-0.5 Mg/3 Ml) 3 ml NEB Q4H PRN PRN Reason: Dyspnea Atorvastatin Calcium (Lipitor) 10 mg PO BEDTIME GREG Last Admin: 05/16/18 19:21 Dose: 10 mg Furosemide (Lasix) 40 mg IVPUSH DAILY GREG Last Admin: 05/17/18 07:52 Dose: 40 mg Methyl Salicylate (Icy Hot Cream) 0 gm TOP Q6H PRN PRN Reason: Pain Last Admin: 05/17/18 12:31 Dose: 1 applic Metoprolol Succinate (Toprol Xl) 100 mg PO DAILY [facility] Last Admin: 05/17/18 07:51 Dose: 100 mg Multivitamins/Minerals/Vitamin C (Tab-A-Cathy) 1 tab PO DAILY [facility] Last Admin: 05/17/18 07:51 Dose: 1 tab Rivaroxaban (Xarelto) 15 mg PO DAILY [facility] Last Admin: 05/17/18 07:51 Dose: 15 mg Senna (Senna) 8.6 mg PO BID PRN PRN Reason: Constipation Last Admin: 05/17/18 02:31 Dose: 8.6 mg Sodium Chloride (Saline Flush) 10 ml FLUSH ASDIRECTED PRN PRN Reason: Keep Vein Open Last Admin: 05/15/18 07:25 Dose: 10 ml Sodium Chloride (Saline Flush) 10 ml FLUSH Q12HR [facility] Last Admin: 05/17/18 07:53 Dose: 10 ml Tamsulosin HCl (Flomax) 0.8 mg PO DAILY [facility] Temazepam (Restoril) 15 mg PO BEDTIME PRN PRN Reason: insomnia Last Admin: 05/16/18 23:18 Dose: 15 mg Discontinued Medications Furosemide (Lasix) 40 mg IVPUSH NOW ONE Stop: 05/14/18 17:04 Last Admin: 05/14/18 17:29 Dose: 40 mg Furosemide (Lasix) 40 mg IVPUSH NOW ONE Stop: 05/15/18 13:01 Last Admin: 05/15/18 13:30 Dose: 40 mg Furosemide (Lasix) 40 mg IVPUSH NOW ONE Stop: 05/16/18 16:01 Last Admin: 05/16/18 16:00 Dose: 40 mg Tamsulosin HCl (Flomax) 0.4 mg PO DAILY [facility] Last Admin: 05/17/18 07:51 Dose: 0.4 mg - Exam Quality Assessment: Urine Catheter General: Alert, Cooperative, No Acute Distress HEENT: Mucous Membr. Moist/[place] Neck: Trachea Midline, No JVD Lungs: Normal Respiratory Effort, Decreased Breath Sounds Cardiovascular: Regular Rate, Regular Rhythm GI/Abdominal Exam: Soft, Non-Tender, No Distention (Male) Exam: Deferred Back Exam: Normal Inspection Extremities: Pedal Edema (decreasing) Skin: Warm, Dry, Intact Neurological: No New Focal Deficit Psy/Mental Status: Alert, Normal Affect, Normal Mood - Problem List & Annotations (1) Anemia SNOMED Code(s): 106309710 Code(s): D64.9 - ANEMIA, UNSPECIFIED Status: Acute Current Visit: Yes Qualifiers: Anemia type: unspecified type Qualified Code(s): D64.9 - Anemia, unspecified (2) Chronic renal disease SNOMED Code(s): 800520249 Code(s): N18.9 - CHRONIC KIDNEY DISEASE, UNSPECIFIED Status: Acute Current Visit: Yes Qualifiers: Chronic kidney disease stage: unspecified stage Qualified Code(s): N18.9 - Chronic kidney disease, unspecified (3) Congestive heart failure (CHF) SNOMED Code(s): 72327829 Code(s): I50.9 - HEART FAILURE, UNSPECIFIED Status: Acute Current Visit: Yes Qualifiers: Heart failure type: unspecified Heart failure chronicity: acute on chronic Qualified Code(s): I50.9 - Heart failure, unspecified Annotation/Comment:: known history of atrial flutter s/p ablation (4) Elevated alkaline phosphatase level SNOMED Code(s): 287183565 Code(s): R74.8 - ABNORMAL LEVELS OF OTHER SERUM ENZYMES Status: Acute Current Visit: Yes Annotation/Comment:: history of prostate cancer with elevated PSA over 45 (5) Prostate cancer SNOMED Code(s): 905542369 Code(s): C61 - MALIGNANT NEOPLASM OF PROSTATE Status: Acute Current Visit : Yes - Problem List Review Problem List Initiated/Reviewed/Updated: Yes - My Orders Last 24 Hours: My Active Orders 05/17/18 03:42 Warming Measures [Cooling Warming Measures] [RC] ASDIRECTED 05/17/18 16:51 DC Valencia Catheter [Urinary Catheter Removal] [RC] Per Unit Routine 05/17/18 16:53 CHF Questionnaire [COMM] Routine 05/18/18 05:11 Chest 2V [CR] Routine 05/18/18 08:00 Bladder Scan [RC] Q8HPRN Tamsulosin [Flomax] 0.8 mg PO DAILY - Plan Plan:: Patient is admitted to the inpatient services, needing IV Lasix due to significantly elevated proBNP. Also known to have low hgb, needing further work- up. Cr leveled, will need monitoring with IV Lasix treatment. Elevated alk phos with recent elevation of PSA, needing bone scan to check for possible metastatic disease. Patient is NO CODE, agrees to be admitted to [place]. Discussed the patient's condition with his son, Brady. will recheck labs in the morning. Telemetry on. Discussed with Dr Juarez. Connie Cuello,DIRECTOR OF RESPIRATORY THERAPY 05/15/18 Larry Soliz MD Had urinary retention last night with 800 cc retained urine. Leg edema decreased but still present. Continue IV lasix and valencia catheter. 05/16/18 Larry Soliz MD Continues to feel better. Pro-BNP continues to decrease. H/H noted. CRP has increased. More lasix. 05/17/18 Larry Soliz MD He is less short of breath. Labs noted. Will d/c valencia catheter and monitor for urinary retention.Renal ultrasound results pending.
[2018-05-17] MEDS ORDERED: Bacitracin/Neomycin/Polymyxin B Oint 0.9 GM U/D Packet TOP ONE (19:05)
[2018-05-17] MEDS: atorvaSTATin 10 MG Tab PO SCH (19:36)
[2018-05-18] MEDS: Rivaroxaban 10 MG Tab PO SCH (07:36)
[2018-05-18] MEDS: Furosemide 40 MG/4 ML VIAL IVPUSH SCH (07:36)
[2018-05-18] MEDS: Multivitamin Tab PO SCH (07:36)
[2018-05-18] MEDS: Sodium Chloride 0.9% 10 ML Syringe FLUSH SCH ×2 (07:36→19:36)
[2018-05-18] MEDS: Tamsulosin 0.4 MG Cap.ER PO SCH (07:36)
[2018-05-18] MEDS: Metoprolol Succinate 50 MG Tab.ER PO SCH (07:38)
[2018-05-18] MEDS: Acetaminophen 650 MG Tab.ER PO PRN ×2 (13:28→19:33)
--- NOTE | 2018-05-18 14:58 | PCM.PN ---
- General Info Date of Service: 05/18/18 Admission Dx/Problem (Free Text): Admission Diagnosis/Problem Admission Diagnosis/Problem Congestive heart failure Functional Status: Reports: Tolerating Diet, Urinating - Review of Systems General: Reports: No Symptoms (He says he feels fine) HEENT: Reports: No Symptoms Pulmonary: Reports: No Symptoms Cardiovascular: Reports: No Symptoms Gastrointestinal: Reports: No Symptoms Genitourinary: Reports: No Symptoms Musculoskeletal: Reports: No Symptoms Skin: Reports: No Symptoms Neurological: Reports: No Symptoms Psychiatric: Reports: No Symptoms - Patient Data Vitals - Most Recent: Last Vital Signs Temp 98.2 F 05/18/18 12:00 Pulse 77 05/18/18 12:00 Resp 16 05/18/18 12:00 BP 115/52 L 05/18/18 12:00 Pulse Ox 94 L 05/18/18 12:00 Weight - Most Recent: 190 lb 6.4 oz I&O - Last 24 Hours: Intake & Output 05/17/18 05/18/18 05/18/18 22:59 06:59 14:59 Intake Total 420 300 750 Output Total 921 615 5241 Balance -530 -325 -400 Lab Results Last 24 Hours: Laboratory Results - last 24 hr 05/18/18 05/18/18 Range/Units 06:55 06:55 WBC 9.7 (4.0-10.2) K/uL RBC 3.22 L (4.33-5.41) M/uL Hgb 9.6 L (13.1-16.8) g/dL Hct 29.0 L (39.0-49.0) % MCV 90.1 (84.0-98.0) fL MCH 29.8 (28.2-33.3) pg MCHC 33.1 (31.7-36.0) g/dL RDW 16.9 H (11.2-14.1) % Plt Count 279 (150-350) K/uL Neut % (Auto) 67.5 (45.0-80.0) % Lymph % (Auto) 15.0 (10.0-50.0) % [place] % (Auto) 13.8 (2.0-14.0) % Eos % (Auto) 3.6 (0.0-5.0) % Baso % (Auto) 0.1 (0.0-2.0) % Neut # (Auto) 6.55 (1.40-7.00) K/uL Lymph # (Auto) 1.46 (0.50-3.50) K/uL [place] # (Auto) 1.34 H (0.00-1.00) K/uL Eos # (Auto) 0.35 (0.00-0.50) K/uL Baso # (Auto) 0.01 (0.00-0.20) K/uL Sodium 135 L (136-145) mmol/L Potassium 4.7 (3.5-5.1) mmol/L Chloride 100 (98-107) mmol/L Carbon Dioxide 26.0 (21.0-32.0) mmol/L BUN 39 H (7-18) mg/dL Creatinine 1.35 H (0.51-1.17) mg/dL Est Cr Clr Drug Dosing 39.55 mL/min Estimated GFR (MDRD) 50 mL/min Glucose 96 (74-106) mg/dL Calcium 8.0 L (8.5-10.1) mg/dL Total Bilirubin 0.7 (0.2-1.0) mg/dL AST 49 H (15-37) U/L ALT 34 (12-78) U/L Alkaline Phosphatase 322 H (46-116) IU/L C-Reactive Protein 7.8 H (<=0.9) mg/dL NT-Pro-B Natriuret Pep 91797 H (0-125) pg/mL Total Protein 6.4 (6.4-8.2) g/dL Albumin 2.2 L (3.4-5.0) g/dL Med Orders - Current: Current Medications Acetaminophen (Tylenol Arthritis Pain) 650 mg PO TID PRN PRN Reason: Pain Last Admin: 05/18/18 13:28 Dose: 650 mg Albuterol/Ipratropium (Duoneb 3.0-0.5 Mg/3 Ml) 3 ml NEB Q4H PRN PRN Reason: Dyspnea Albuterol/Ipratropium (Duoneb 3.0-0.5 Mg/3 Ml) 3 ml NEB QIDRT GREG Atorvastatin Calcium (Lipitor) 10 mg PO BEDTIME GREG Last Admin: 05/17/18 19:36 Dose: 10 mg Furosemide (Lasix) 40 mg IVPUSH DAILY [facility] Last Admin: 05/18/18 07:36 Dose: 40 mg Azithromycin 500 mg/ Sodium (Chloride) 250 mls @ 250 mls/hr IV Q24H GREG Stop: 05/20/18 15:59 Lorazepam (Ativan) 1 mg PO BEDTIME GREG Meropenem (Merrem) 500 mg IVPUSH Q12HR [facility] Methyl Salicylate (Icy Hot Cream) 0 gm TOP Q6H PRN PRN Reason: Pain Last Admin: 05/17/18 19:43 Dose: 1 applic Metoprolol Succinate (Toprol Xl) 100 mg PO DAILY [facility] Last Admin: 05/18/18 07:38 Dose: 100 mg Multivitamins/Minerals/Vitamin C (Tab-A-Cathy) 1 tab PO DAILY [facility] Last Admin: 05/18/18 07:36 Dose: 1 tab Rivaroxaban (Xarelto) 15 mg PO DAILY [facility] Last Admin: 05/18/18 07:36 Dose: 15 mg Senna (Senna) 8.6 mg PO BID PRN PRN Reason: Constipation Last Admin: 05/17/18 22:30 Dose: 8.6 mg Sodium Chloride (Saline Flush) 10 ml FLUSH ASDIRECTED PRN PRN Reason: Keep Vein Open Last Admin: 05/15/18 07:25 Dose: 10 ml Sodium Chloride (Saline Flush) 10 ml FLUSH Q12HR [facility] Last Admin: 05/18/18 07:36 Dose: 10 ml Tamsulosin HCl (Flomax) 0.8 mg PO DAILY [facility] Last Admin: 05/18/18 07:36 Dose: 0.8 mg Temazepam (Restoril) 15 mg PO BEDTIME PRN PRN Reason: insomnia Last Admin: 05/16/18 23:18 Dose: 15 mg Discontinued Medications Furosemide (Lasix) 40 mg IVPUSH NOW ONE Stop: 05/14/18 17:04 Last Admin: 05/14/18 17:29 Dose: 40 mg Furosemide (Lasix) 40 mg IVPUSH NOW ONE Stop: 05/15/18 13:01 Last Admin: 05/15/18 13:30 Dose: 40 mg Furosemide (Lasix) 40 mg IVPUSH NOW ONE Stop: 05/16/18 16:01 Last Admin: 05/16/18 16:00 Dose: 40 mg Neomycin/Polymyxin/Bacitracin (Triple Antibiotic Oint) 1 each TOP ONETIME ONE Stop: 05/17/18 19:06 Last Admin: 05/17/18 19:35 Dose: 1 each Tamsulosin HCl (Flomax) 0.4 mg PO DAILY GREG Last Admin: 05/17/18 07:51 Dose: 0.4 mg - Exam General: Alert, Cooperative, No Acute Distress HEENT: Pupils Equal, Pupils Reactive, Mucous Membr. Moist/[place] Neck: Trachea Midline, No JVD Lungs: Normal Respiratory Effort, Decreased Breath Sounds, Crackles (LLL), Rhonchi (LLL) Cardiovascular: Regular Rate, Regular Rhythm (Male) Exam: Deferred Back Exam: Normal Inspection Extremities: Pedal Edema (improved) Skin: Warm, Dry, Intact Neurological: No New Focal Deficit Psy/Mental Status: Alert, Normal Affect, Anxious - Problem List & Annotations (1) Anemia SNOMED Code(s): 491718804 Code(s): D64.9 - ANEMIA, UNSPECIFIED Status: Acute Current Visit: Yes Qualifiers: Anemia type: unspecified type Qualified Code(s): D64.9 - Anemia, unspecified (2) Chronic renal disease SNOMED Code(s): 918356016 Code(s): N18.9 - CHRONIC KIDNEY DISEASE, UNSPECIFIED Status: Acute Current Visit: Yes Qualifiers: Chronic kidney disease stage: unspecified stage Qualified Code(s): N18.9 - Chronic kidney disease, unspecified (3) Congestive heart failure (CHF) SNOMED Code(s): 47341839 Code(s): I50.9 - HEART FAILURE, UNSPECIFIED Status: Acute Current Visit: Yes Qualifiers: Heart failure type: unspecified Heart failure chronicity: acute on chronic Qualified Code(s): I50.9 - Heart failure, unspecified Annotation/Comment:: known history of atrial flutter s/p ablation (4) Elevated alkaline phosphatase level SNOMED Code(s): 619167453 Code(s): R74.8 - ABNORMAL LEVELS OF OTHER SERUM ENZYMES Status: Acute Current Visit: Yes Annotation/Comment:: history of prostate cancer with elevated PSA over 45 (5) Prostate cancer SNOMED Code(s): 392283793 Code(s): C61 - MALIGNANT NEOPLASM OF PROSTATE Status: Acute Current Visit : Yes (6) Pneumonia SNOMED Code(s): 026520617 Code(s): J18.9 - PNEUMONIA, UNSPECIFIED ORGANISM Status: Acute Current Visit: Yes Qualifiers: Pneumonia type: due to unspecified organism Laterality: left Lung location: lower lobe of lung Qualified Code(s): J18.1 - Lobar pneumonia, unspecified organism - Problem List Review Problem List Initiated/Reviewed/Updated: Yes - My Orders Last 24 Hours: My Active Orders 05/17/18 16:53 CHF Questionnaire [COMM] Routine 05/18/18 05:11 Chest 2V [CR] Routine 05/18/18 08:00 Bladder Scan [RC] Q8HPRN Tamsulosin [Flomax] 0.8 mg PO DAILY 05/18/18 14:43 CULTURE BLOOD [BC] Stat CULTURE BLOOD [BC] Stat Blood Culture x2 Reflex Set [OM.PC] Stat 05/18/18 15:00 Azithromycin [Zithromax] 500 mg Sodium Chloride 0.9% [Normal Saline] 250 ml IV Q24H 05/18/18 16:00 RT Aerosol Therapy [RC] ASDIRECTED Albuterol/Ipratropium [DuoNeb 3.0-0.5 MG/3 ML] 3 ml NEB QIDRT 05/18/18 20:00 LORazepam [Ativan] 1 mg PO BEDTIME Meropenem [Merrem] 500 mg IVPUSH Q12HR 05/19/18 05:11 BASIC METABOLIC PANEL,BMP [CHEM] Routine CBC WITH AUTO DIFF [HEME] DAILY CRP [C-REACTIVE PROTEIN] [CHEM] DAILY MYCOPLASMA IGM RAPID [MREF] Routine PRO B-TYPE NATRIUR PEPT,BNPPRO [CHEM] Routine 05/20/18 05:11 CBC WITH AUTO DIFF [HEME] DAILY CRP [C-REACTIVE PROTEIN] [CHEM] DAILY - Plan Plan:: Patient is admitted to the inpatient services, needing IV Lasix due to significantly elevated proBNP. Also known to have low hgb, needing further work- up. Cr leveled, will need monitoring with IV Lasix treatment. Elevated alk phos with recent elevation of PSA, needing bone scan to check for possible metastatic disease. Patient is NO CODE, agrees to be admitted to [place]. Discussed the patient's condition with his son, Brady. will recheck labs in the morning. Telemetry on. Discussed with Dr Sheets. Connie Portillosen,LINEWORKER 05/15/18 Larry Soliz MD Had urinary retention last night with 800 cc retained urine. Leg edema decreased but still present. Continue IV lasix and valencia catheter. 05/16/18 Larry Soliz MD Continues to feel better. Pro-BNP continues to decrease. H/H noted. CRP has increased. More lasix. 05/17/18 Larry Soliz MD He is less short of breath. Labs noted. Will d/c valencia catheter and monitor for urinary retention.Renal ultrasound results pending. 05/18/18 Larry Soliz MD He feels fine. He wants to go home for his anniversary constitution party. Valencia out and urinating satisfactorily. CXR improved pulmonary vascular congestion but shows new LLL pneumonia. Needs continued inpatient status to treat newly diagnosed pneumonia. He agrees.
[2018-05-18] MEDS: Albuterol/Ipratropium 3.0-0.5 MG/3 ML Neb Soln NEB SCH ×2 (15:47→19:33)
[2018-05-18] MEDS: Azithromycin 500 MG in Sodium Chloride 0.9% 250 ML IV SCH (15:49)
[2018-05-18] MEDS: Meropenem 500 MG SDV IVPUSH SCH (19:33)
[2018-05-18] MEDS: atorvaSTATin 10 MG Tab PO SCH (19:33)
[2018-05-18] MEDS: Sennosides 8.6 MG Tab PO PRN (19:34)
[2018-05-18] MEDS: LORazepam 1 MG Tab PO SCH (19:34)
[2018-05-18] MEDS: Menthol/Methyl Salicylate 85 GM Tube TOP PRN ×2 (19:35→22:50)
[2018-05-18] MEDS: Temazepam 15 MG Cap PO PRN (21:44)
[2018-05-19] MEDS: Acetaminophen 650 MG Tab.ER PO PRN ×3 (04:35→19:53)
[2018-05-19] MEDS: Menthol/Methyl Salicylate 85 GM Tube TOP PRN ×3 (04:39→19:57)
[2018-05-19] MEDS: Albuterol/Ipratropium 3.0-0.5 MG/3 ML Neb Soln NEB SCH ×4 (08:19→19:57)
[2018-05-19] MEDS: Multivitamin Tab PO SCH (08:20)
[2018-05-19] MEDS: Meropenem 500 MG SDV IVPUSH SCH ×2 (08:20→19:58)
[2018-05-19] MEDS: Furosemide 40 MG/4 ML VIAL IVPUSH SCH (08:20)
[2018-05-19] MEDS: Tamsulosin 0.4 MG Cap.ER PO SCH (08:20)
[2018-05-19] MEDS: Rivaroxaban 10 MG Tab PO SCH (08:21)
[2018-05-19] MEDS: Metoprolol Succinate 50 MG Tab.ER PO SCH (08:21)
[2018-05-19] MEDS: Sodium Chloride 0.9% 10 ML Syringe FLUSH SCH ×2 (08:24→19:58)
[2018-05-19] MEDS: Sodium Chloride 0.9% 10 ML Syringe FLUSH PRN ×2 (08:24→15:49)
[2018-05-19] MEDS: Azithromycin 500 MG in Sodium Chloride 0.9% 250 ML IV SCH (15:49)
[2018-05-19] MEDS: Sennosides 8.6 MG Tab PO PRN (19:53)
[2018-05-19] MEDS: LORazepam 1 MG Tab PO SCH (19:54)
[2018-05-19] MEDS: atorvaSTATin 10 MG Tab PO SCH (19:56)
[2018-05-19] MEDS: Temazepam 15 MG Cap PO PRN ×2 (19:57→21:32)
--- NOTE | 2018-05-19 21:18 | PCM.PN ---
- General Info Date of Service: 05/19/18 Admission Dx/Problem (Free Text): Admission Diagnosis/Problem Admission Diagnosis/Problem Congestive heart failure Functional Status: Reports: Ambulating, Urinating - Review of Systems General: Reports: No Symptoms HEENT: Reports: No Symptoms Pulmonary: Reports: No Symptoms Cardiovascular: Reports: No Symptoms Gastrointestinal: Reports: No Symptoms Genitourinary: Reports: No Symptoms Musculoskeletal: Reports: No Symptoms Skin: Reports: No Symptoms Neurological: Reports: No Symptoms Psychiatric: Reports: No Symptoms - Patient Data Vitals - Most Recent: Last Vital Signs Temp 99.7 F 05/19/18 20:00 Pulse 79 05/19/18 20:00 Resp 24 H 05/19/18 20:00 BP 115/54 L 05/19/18 20:00 Pulse Ox 97 05/19/18 20:00 Weight - Most Recent: 191 lb 4.8 oz I&O - Last 24 Hours: Intake & Output 05/19/18 05/19/18 05/19/18 06:59 14:59 22:59 Intake Total 828 605 9868 Output Total 300 Balance 236 285 2050 Lab Results Last 24 Hours: Laboratory Results - last 24 hr 05/19/18 05/19/18 05/19/18 Range/Units 07:00 07:00 07:00 WBC 9.9 (4.0-10.2) K/uL RBC 3.08 L (4.33-5.41) M/uL Hgb 9.3 L (13.1-16.8) g/dL Hct 27.6 L (39.0-49.0) % MCV 89.6 (84.0-98.0) fL MCH 30.2 (28.2-33.3) pg MCHC 33.7 (31.7-36.0) g/dL RDW 16.8 H (11.2-14.1) % Plt Count 276 (150-350) K/uL Neut % (Auto) 68.8 (45.0-80.0) % Lymph % (Auto) 13.7 (10.0-50.0) % [place] % (Auto) 13.5 (2.0-14.0) % Eos % (Auto) 3.8 (0.0-5.0) % Baso % (Auto) 0.2 (0.0-2.0) % Neut # (Auto) 6.82 (1.40-7.00) K/uL Lymph # (Auto) 1.36 (0.50-3.50) K/uL [place] # (Auto) 1.34 H (0.00-1.00) K/uL Eos # (Auto) 0.38 (0.00-0.50) K/uL Baso # (Auto) 0.02 (0.00-0.20) K/uL Sodium 134 L (136-145) mmol/L Potassium 4.6 (3.5-5.1) mmol/L Chloride 100 (98-107) mmol/L Carbon Dioxide 25.1 (21.0-32.0) mmol/L BUN 49 H (7-18) mg/dL Creatinine 1.36 H (0.51-1.17) mg/dL Est Cr Clr Drug Dosing 39.26 mL/min Estimated GFR (MDRD) 50 mL/min Glucose 98 (74-106) mg/dL Calcium 8.2 L (8.5-10.1) mg/dL Iron 14 L (50-175) ug/dL TIBC 172 L (250-450) ug/dL % Saturation 8.48562 Ferritin 113 (8-388) ng/mL C-Reactive Protein 8.6 H (<=0.9) mg/dL NT-Pro-B Natriuret Pep 79514 H (0-125) pg/mL Vitamin B12 634 (193-986) pg/mL Folate (8.6-58.9) ng/mL 05/19/18 Range/Units 07:00 WBC (4.0-10.2) K/uL RBC (4.33-5.41) M/uL Hgb (13.1-16.8) g/dL Hct (39.0-49.0) % MCV (84.0-98.0) fL MCH (28.2-33.3) pg MCHC (31.7-36.0) g/dL RDW (11.2-14.1) % Plt Count (150-350) K/uL Neut % (Auto) (45.0-80.0) % Lymph % (Auto) (10.0-50.0) % [place] % (Auto) (2.0-14.0) % Eos % (Auto) (0.0-5.0) % Baso % (Auto) (0.0-2.0) % Neut # (Auto) (1.40-7.00) K/uL Lymph # (Auto) (0.50-3.50) K/uL [place] # (Auto) (0.00-1.00) K/uL Eos # (Auto) (0.00-0.50) K/uL Baso # (Auto) (0.00-0.20) K/uL Sodium (136-145) mmol/L Potassium (3.5-5.1) mmol/L Chloride (98-107) mmol/L Carbon Dioxide (21.0-32.0) mmol/L BUN (7-18) mg/dL Creatinine (0.51-1.17) mg/dL Est Cr Clr Drug Dosing mL/min Estimated GFR (MDRD) mL/min Glucose (74-106) mg/dL Calcium (8.5-10.1) mg/dL Iron (50-175) ug/dL TIBC (250-450) ug/dL % Saturation Ferritin (8-388) ng/mL C-Reactive Protein (<=0.9) mg/dL NT-Pro-B Natriuret Pep (0-125) pg/mL Vitamin B12 (193-986) pg/mL Folate 20.0 (8.6-58.9) ng/mL [place] Results Last 24 Hours: Microbiology 05/18/18 15:05 Aerobic Blood Culture - Preliminary Blood - Venous - Lab Draw NO GROWTH AFTER 1 DAY Anaerobic Blood Culture - Preliminary NO GROWTH AFTER 1 DAY 05/18/18 15:05 Aerobic Blood Culture - Preliminary Blood - Venous NO GROWTH AFTER 1 DAY Anaerobic Blood Culture - Preliminary NO GROWTH AFTER 1 DAY Med Orders - Current: Current Medications Acetaminophen (Tylenol Arthritis Pain) 650 mg PO TID PRN PRN Reason: Pain Last Admin: 05/19/18 19:53 Dose: 650 mg Albuterol/Ipratropium (Duoneb 3.0-0.5 Mg/3 Ml) 3 ml NEB Q4H PRN PRN Reason: Dyspnea Albuterol/Ipratropium (Duoneb 3.0-0.5 Mg/3 Ml) 3 ml NEB QIDRT GREG Last Admin: 05/19/18 19:57 Dose: 3 ml Ascorbic Acid (Vitamin C) 500 mg PO DAILY [facility] Atorvastatin Calcium (Lipitor) 10 mg PO BEDTIME [facility] Last Admin: 05/19/18 19:56 Dose: 10 mg Ferrous Sulfate (Ferrous Sulfate) 325 mg PO WITHBREAKFAST [facility] Furosemide (Lasix) 40 mg IVPUSH DAILY [facility] Last Admin: 05/19/18 08:20 Dose: 40 mg Azithromycin 500 mg/ Sodium (Chloride) 250 mls @ 250 mls/hr IV Q24H GREG Stop: 05/20/18 15:59 Last Admin: 05/19/18 15:49 Dose: 250 mls/hr Lorazepam (Ativan) 1 mg PO BEDTIME [facility] Last Admin: 05/19/18 19:54 Dose: 1 mg Meropenem (Merrem) 500 mg IVPUSH Q12HR [facility] Last Admin: 05/19/18 19:58 Dose: 500 mg Methyl Salicylate (Icy Hot Cream) 0 gm TOP Q6H PRN PRN Reason: Pain Last Admin: 05/19/18 19:57 Dose: 1 applic Metoprolol Succinate (Toprol Xl) 100 mg PO DAILY [facility] Last Admin: 05/19/18 08:21 Dose: 100 mg Multivitamins/Minerals/Vitamin C (Tab-A-Cathy) 1 tab PO DAILY [facility] Last Admin: 05/19/18 08:20 Dose: 1 tab Rivaroxaban (Xarelto) 15 mg PO DAILY [facility] Last Admin: 05/19/18 08:21 Dose: 15 mg Senna (Senna) 8.6 mg PO BID PRN PRN Reason: Constipation Last Admin: 05/19/18 19:53 Dose: 8.6 mg Sodium Chloride (Saline Flush) 10 ml FLUSH ASDIRECTED PRN PRN Reason: Keep Vein Open Last Admin: 05/19/18 15:49 Dose: 10 ml Sodium Chloride (Saline Flush) 10 ml FLUSH Q12HR [facility] Last Admin: 05/19/18 19:58 Dose: 10 ml Tamsulosin HCl (Flomax) 0.8 mg PO DAILY [facility] Last Admin: 05/19/18 08:20 Dose: 0.8 mg Temazepam (Restoril) 15 mg PO BEDTIME PRN PRN Reason: insomnia Last Admin: 05/19/18 19:57 Dose: 15 mg Discontinued Medications Furosemide (Lasix) 40 mg IVPUSH NOW ONE Stop: 05/14/18 17:04 Last Admin: 05/14/18 17:29 Dose: 40 mg Furosemide (Lasix) 40 mg IVPUSH NOW ONE Stop: 05/15/18 13:01 Last Admin: 05/15/18 13:30 Dose: 40 mg Furosemide (Lasix) 40 mg IVPUSH NOW ONE Stop: 05/16/18 16:01 Last Admin: 05/16/18 16:00 Dose: 40 mg Neomycin/Polymyxin/Bacitracin (Triple Antibiotic Oint) 1 each TOP ONETIME ONE Stop: 05/17/18 19:06 Last Admin: 05/17/18 19:35 Dose: 1 each Tamsulosin HCl (Flomax) 0.4 mg PO DAILY [facility]REG Last Admin: 05/17/18 07:51 Dose: 0.4 mg - Exam General: No Acute Distress HEENT: Mucous Membr. Moist/[employer] Neck: Trachea Midline, No JVD Lungs: Normal Respiratory Effort, Rhonchi (LLL) Cardiovascular: Regular Rate, Regular Rhythm GI/Abdominal Exam: Soft, Non-Tender (Male) Exam: Deferred Back Exam: Normal Inspection Extremities: Pedal Edema (decreased) Skin: Warm, Dry, Intact Neurological: No New Focal Deficit Psy/Mental Status: Anxious - Problem List & Annotations (1) Anemia SNOMED Code(s): 361637210 Code(s): D64.9 - ANEMIA, UNSPECIFIED Status: Acute Current Visit: Yes Qualifiers: Anemia type: due to chronic kidney disease Chronic kidney disease stage: unspecified stage Qualified Code(s): N18.9 - Chronic kidney disease, unspecified; D63.1 - Anemia in chronic kidney disease (2) Chronic renal disease SNOMED Code(s): 687947574 Code(s): N18.9 - CHRONIC KIDNEY DISEASE, UNSPECIFIED Status: Acute Current Visit: Yes Qualifiers: Chronic kidney disease stage: unspecified stage Qualified Code(s): N18.9 - Chronic kidney disease, unspecified (3) Congestive heart failure (CHF) SNOMED Code(s): 44394699 Code(s): I50.9 - HEART FAILURE, UNSPECIFIED Status: Acute Current Visit: Yes Qualifiers: Heart failure type: unspecified Heart failure chronicity: acute on chronic Qualified Code(s): I50.9 - Heart failure, unspecified Annotation/Comment:: known history of atrial flutter s/p ablation (4) Elevated alkaline phosphatase level SNOMED Code(s): 778338648 Code(s): R74.8 - ABNORMAL LEVELS OF OTHER SERUM ENZYMES Status: Acute Current Visit: Yes Annotation/Comment:: history of prostate cancer with elevated PSA over 45 (5) Prostate cancer SNOMED Code(s): 785065884 Code(s): C61 - MALIGNANT NEOPLASM OF PROSTATE Status: Acute Current Visit : Yes (6) Pneumonia SNOMED Code(s): 770093577 Code(s): J18.9 - PNEUMONIA, UNSPECIFIED ORGANISM Status: Acute Priority: High Current Visit: Yes Qualifiers: Pneumonia type: due to unspecified organism Laterality: left Lung location: lower lobe of lung Qualified Code(s): J18.1 - Lobar pneumonia, unspecified organism - Problem List Review Problem List Initiated/Reviewed/Updated: Yes - My Orders Last 24 Hours: My Active Orders 05/19/18 07:00 MYCOPLASMA IGM RAPID [MREF] Routine 05/20/18 05:11 Chest 2V [CR] Routine BASIC METABOLIC PANEL,BMP [CHEM] Routine CBC WITH AUTO DIFF [HEME] DAILY CRP [C-REACTIVE PROTEIN] [CHEM] DAILY 05/20/18 08:00 Ascorbic Acid [Vitamin C] 500 mg PO DAILY Ferrous Sulfate 325 mg PO WITHBREAKFAST - Plan Plan:: Patient is admitted to the inpatient services, needing IV Lasix due to significantly elevated proBNP. Also known to have low hgb, needing further work- up. Cr leveled, will need monitoring with IV Lasix treatment. Elevated alk phos with recent elevation of PSA, needing bone scan to check for possible metastatic disease. Patient is NO CODE, agrees to be admitted to [place]. Discussed the patient's condition with his son, Brady. will recheck labs in the morning. Telemetry on. Discussed with Dr Juarez. Connie Cuello,SLICING MACHINE OPERATOR 05/15/18 Larry Soliz MD Had urinary retention last night with 800 cc retained urine. Leg edema decreased but still present. Continue IV lasix and valencia catheter. 05/16/18 Larry Soliz MD Continues to feel better. Pro-BNP continues to decrease. H/H noted. CRP has increased. More lasix. 05/17/18 Larry Soliz MD He is less short of breath. Labs noted. Will d/c valencia catheter and monitor for urinary retention.Renal ultrasound results pending. 05/18/18 Larry Soliz MD He feels fine. He wants to go home for his anniversary libertarian. [place] out and urinating satisfactorily. CXR improved pulmonary vascular congestion but shows new LLL pneumonia. Needs continued inpatient status to treat newly diagnosed pneumonia. He agrees. 05/19/18 Larry Soliz MD Continues on treatment for pneumonia and CHF. CRP not improved.
[2018-05-20] MEDS: Menthol/Methyl Salicylate 85 GM Tube TOP PRN ×2 (07:28→20:58)
[2018-05-20] MEDS: Sodium Chloride 0.9% 10 ML Syringe FLUSH SCH ×2 (07:29→19:50)
[2018-05-20] MEDS: Acetaminophen 650 MG Tab.ER PO PRN ×2 (07:29→20:57)
[2018-05-20] MEDS: Albuterol/Ipratropium 3.0-0.5 MG/3 ML Neb Soln NEB SCH ×4 (07:29→19:50)
[2018-05-20] MEDS: Tamsulosin 0.4 MG Cap.ER PO SCH (07:30)
[2018-05-20] MEDS: Ferrous Sulfate 325 MG Tab PO SCH (07:30)
[2018-05-20] MEDS: Multivitamin Tab PO SCH (07:30)
[2018-05-20] MEDS: Sennosides 8.6 MG Tab PO PRN ×2 (07:30→20:57)
[2018-05-20] MEDS: Ascorbic Acid 500 MG Tab PO SCH (07:30)
[2018-05-20] MEDS: Rivaroxaban 10 MG Tab PO SCH (07:30)
[2018-05-20] MEDS: Metoprolol Succinate 50 MG Tab.ER PO SCH (07:31)
[2018-05-20] MEDS: Furosemide 40 MG/4 ML VIAL IVPUSH SCH (07:31)
[2018-05-20] MEDS: Meropenem 500 MG SDV IVPUSH SCH ×2 (08:28→19:50)
--- NOTE | 2018-05-20 13:50 | PCM.SN ---
- Free Text/Narrative Note: 05-20-18 Venu Maguire PA-C RN reported that patient has been almost constantly incontinent of urine since valencia cath DC'd. UA ordered.
[2018-05-20] MEDS: Azithromycin 500 MG in Sodium Chloride 0.9% 250 ML IV SCH (16:07)
[2018-05-20] MEDS: Sodium Chloride 0.9% 10 ML Syringe FLUSH PRN ×2 (16:07→18:38)
[2018-05-20] MEDS ORDERED: Furosemide 40 MG/4 ML VIAL IVPUSH ONE (17:00)
--- NOTE | 2018-05-20 17:19 | PCM.PN ---
- General Info Date of Service: 05/20/18 Admission Dx/Problem (Free Text): Admission Diagnosis/Problem Admission Diagnosis/Problem Congestive heart failure Functional Status: Reports: Tolerating Diet, Ambulating - Review of Systems General: Reports: No Symptoms HEENT: Reports: No Symptoms Pulmonary: Reports: No Symptoms Cardiovascular: Reports: No Symptoms Gastrointestinal: Reports: No Symptoms Genitourinary: Reports: Frequency, Incontinence Musculoskeletal: Reports: No Symptoms Skin: Reports: No Symptoms Neurological: Reports: No Symptoms Psychiatric: Reports: No Symptoms - Patient Data Vitals - Most Recent: Last Vital Signs Temp 98.8 F 05/20/18 16:00 Pulse 73 05/20/18 16:00 Resp 16 05/20/18 16:00 BP 118/65 05/20/18 16:00 Pulse Ox 97 05/20/18 16:00 Weight - Most Recent: 191 lb 8 oz I&O - Last 24 Hours: Intake & Output 05/20/18 05/20/18 05/20/18 06:59 14:59 22:59 Intake Total 600 880 250 Output Total 100 350 Balance 500 530 250 Lab Results Last 24 Hours: Laboratory Results - last 24 hr 05/20/18 05/20/18 05/20/18 Range/Units 07:00 07:03 17:00 WBC 8.5 (4.0-10.2) K/uL RBC 2.88 L (4.33-5.41) M/uL Hgb 8.4 L (13.1-16.8) g/dL Hct 26.0 L (39.0-49.0) % MCV 90.3 (84.0-98.0) fL MCH 29.2 (28.2-33.3) pg MCHC 32.3 (31.7-36.0) g/dL RDW 16.8 H (11.2-14.1) % Plt Count 287 (150-350) K/uL Neut % (Auto) 68.0 (45.0-80.0) % Lymph % (Auto) 13.9 (10.0-50.0) % [place] % (Auto) 12.7 (2.0-14.0) % Eos % (Auto) 5.3 H (0.0-5.0) % Baso % (Auto) 0.1 (0.0-2.0) % Neut # (Auto) 5.79 (1.40-7.00) K/uL Lymph # (Auto) 1.18 (0.50-3.50) K/uL [place] # (Auto) 1.08 H (0.00-1.00) K/uL Eos # (Auto) 0.45 (0.00-0.50) K/uL Baso # (Auto) 0.01 (0.00-0.20) K/uL Sodium 135 L (136-145) mmol/L Potassium 4.6 (3.5-5.1) mmol/L Chloride 101 (98-107) mmol/L Carbon Dioxide 25.7 (21.0-32.0) mmol/L BUN 52 H (7-18) mg/dL Creatinine 1.39 H (0.51-1.17) mg/dL Est Cr Clr Drug Dosing 38.41 mL/min Estimated GFR (MDRD) 49 mL/min Glucose 98 (74-106) mg/dL Calcium 8.0 L (8.5-10.1) mg/dL C-Reactive Protein 8.2 H (<=0.9) mg/dL Specimen Type Urincc Urine Color Yellow Urine Appearance Clear Urine pH 5.5 (5.0-9.0) Ur Specific [place] 1.010 (1.005-1.030) Urine Protein Negative (NEGATIVE) mg/dL Urine Glucose (UA) Negative (NEGATIVE) mg/dL Urine Ketones Negative (NEGATIVE) mg/dL Urine Occult Blood Moderate H (NEGATIVE) Urine Nitrite Negative (NEGATIVE) Urine Bilirubin Negative (NEGATIVE) Urine Urobilinogen 0.2 (0.2-1.0) E.U./dL Ur Leukocyte Esterase Negative (NEGATIVE) Urine RBC 75-100 H /HPF Urine WBC 0-5 /HPF Ur Epithelial Cells Rare /LPF Urine Bacteria Rare (NONE TO FEW) /HPF [place] Results Last 24 Hours: Microbiology 05/18/18 15:05 Aerobic Blood Culture - Preliminary Blood - Venous - Lab Draw NO GROWTH AFTER 2 DAYS Anaerobic Blood Culture - Preliminary NO GROWTH AFTER 2 DAYS 05/18/18 15:05 Aerobic Blood Culture - Preliminary Blood - Venous NO GROWTH AFTER 2 DAYS Anaerobic Blood Culture - Preliminary NO GROWTH AFTER 2 DAYS 05/19/18 07:00 Mycoplasma Serology - Final Blood Med Orders - Current: Current Medications Acetaminophen (Tylenol Arthritis Pain) 650 mg PO TID PRN PRN Reason: Pain Last Admin: 05/20/18 07:29 Dose: 650 mg Albuterol/Ipratropium (Duoneb 3.0-0.5 Mg/3 Ml) 3 ml NEB Q4H PRN PRN Reason: Dyspnea Albuterol/Ipratropium (Duoneb 3.0-0.5 Mg/3 Ml) 3 ml NEB QIDRT [facility] Last Admin: 05/20/18 16:07 Dose: 3 ml Ascorbic Acid (Vitamin C) 500 mg PO DAILY [facility] Last Admin: 05/20/18 07:30 Dose: 500 mg Atorvastatin Calcium (Lipitor) 10 mg PO BEDTIME [facility] Last Admin: 05/19/18 19:56 Dose: 10 mg Azithromycin (Zithromax) 500 mg PO DAILY [facility] Ferrous Sulfate (Ferrous Sulfate) 325 mg PO WITHBREAKFAST [facility] Last Admin: 05/20/18 07:30 Dose: 325 mg Furosemide (Lasix) 40 mg IVPUSH BIDDIURETIC [facility] Lorazepam (Ativan) 1 mg PO BEDTIME [facility] Last Admin: 05/19/18 19:54 Dose: 1 mg Meropenem (Merrem) 500 mg IVPUSH Q12HR [facility] Last Admin: 05/20/18 08:28 Dose: 500 mg Methyl Salicylate (Icy Hot Cream) 0 gm TOP Q6H PRN PRN Reason: Pain Last Admin: 05/20/18 07:28 Dose: 1 applic Metoprolol Succinate (Toprol Xl) 100 mg PO DAILY [facility] Last Admin: 05/20/18 07:31 Dose: 100 mg Multivitamins/Minerals/Vitamin C (Tab-A-Cathy) 1 tab PO DAILY [facility] Last Admin: 05/20/18 07:30 Dose: 1 tab Rivaroxaban (Xarelto) 15 mg PO DAILY [facility] Last Admin: 05/20/18 07:30 Dose: 15 mg Senna (Senna) 8.6 mg PO BID PRN PRN Reason: Constipation Last Admin: 05/20/18 07:30 Dose: 8.6 mg Sodium Chloride (Saline Flush) 10 ml FLUSH ASDIRECTED PRN PRN Reason: Keep Vein Open Last Admin: 05/20/18 16:07 Dose: 10 ml Sodium Chloride (Saline Flush) 10 ml FLUSH Q12HR [facility] Last Admin: 05/20/18 07:29 Dose: 10 ml Tamsulosin HCl (Flomax) 0.8 mg PO DAILY [facility] Last Admin: 05/20/18 07:30 Dose: 0.8 mg Temazepam (Restoril) 15 mg PO BEDTIME PRN PRN Reason: insomnia Last Admin: 05/19/18 21:32 Dose: 15 mg Discontinued Medications Furosemide (Lasix) 40 mg IVPUSH NOW ONE Stop: 05/14/18 17:04 Last Admin: 05/14/18 17:29 Dose: 40 mg Furosemide (Lasix) 40 mg IVPUSH DAILY [facility] Last Admin: 05/20/18 07:31 Dose: 40 mg Furosemide (Lasix) 40 mg IVPUSH NOW ONE Stop: 05/15/18 13:01 Last Admin: 05/15/18 13:30 Dose: 40 mg Furosemide (Lasix) 40 mg IVPUSH NOW ONE Stop: 05/16/18 16:01 Last Admin: 05/16/18 16:00 Dose: 40 mg Furosemide (Lasix) 40 mg IVPUSH NOW ONE Stop: 05/20/18 17:01 Azithromycin 500 mg/ Sodium (Chloride) 250 mls @ 250 mls/hr IV Q24H [facility] Stop: 05/20/18 15:59 Last Admin: 05/20/18 16:07 Dose: 250 mls/hr Neomycin/Polymyxin/Bacitracin (Triple Antibiotic Oint) 1 each TOP ONETIME ONE Stop: 05/17/18 19:06 Last Admin: 05/17/18 19:35 Dose: 1 each Tamsulosin HCl (Flomax) 0.4 mg PO DAILY [facility] Last Admin: 05/17/18 07:51 Dose: 0.4 mg - Exam General: Alert, Cooperative, No Acute Distress HEENT: Mucous Membr. Moist/[place] Neck: Trachea Midline, No JVD Lungs: Normal Respiratory Effort, Decreased Breath Sounds, Crackles, Rales Cardiovascular: Regular Rate, Regular Rhythm GI/Abdominal Exam: Soft, Non-Tender, No Distention (Male) Exam: Deferred Back Exam: Normal Inspection Extremities: Non-Tender, Pedal Edema Skin: Warm, Dry, Intact Neurological: No New Focal Deficit Psy/Mental Status: Alert, Normal Affect, Normal Mood - Problem List & Annotations (1) Anemia SNOMED Code(s): 749595193 Code(s): D64.9 - ANEMIA, UNSPECIFIED Status: Acute Current Visit: Yes Qualifiers: Anemia type: due to chronic kidney disease Chronic kidney disease stage: unspecified stage Qualified Code(s): N18.9 - Chronic kidney disease, unspecified; D63.1 - Anemia in chronic kidney disease (2) Chronic renal disease SNOMED Code(s): 512859771 Code(s): N18.9 - CHRONIC KIDNEY DISEASE, UNSPECIFIED Status: Acute Current Visit: Yes Qualifiers: Chronic kidney disease stage: unspecified stage Qualified Code(s): N18.9 - Chronic kidney disease, unspecified (3) Congestive heart failure (CHF) SNOMED Code(s): 43932383 Code(s): I50.9 - HEART FAILURE, UNSPECIFIED Status: Acute Current Visit: Yes Qualifiers: Heart failure type: unspecified Heart failure chronicity: acute on chronic Qualified Code(s): I50.9 - Heart failure, unspecified Annotation/Comment:: known history of atrial flutter s/p ablation (4) Elevated alkaline phosphatase level SNOMED Code(s): 354881651 Code(s): R74.8 - ABNORMAL LEVELS OF OTHER SERUM ENZYMES Status: Acute Current Visit: Yes Annotation/Comment:: history of prostate cancer with elevated PSA over 45 (5) Prostate cancer SNOMED Code(s): 074149217 Code(s): C61 - MALIGNANT NEOPLASM OF PROSTATE Status: Acute Current Visit : Yes (6) Pneumonia SNOMED Code(s): 022809690 Code(s): J18.9 - PNEUMONIA, UNSPECIFIED ORGANISM Status: Acute Priority: High Current Visit: Yes Qualifiers: Pneumonia type: due to unspecified organism Laterality: left Lung location: lower lobe of lung Qualified Code(s): J18.1 - Lobar pneumonia, unspecified organism (7) Mycoplasma pneumoniae pneumonia SNOMED Code(s): 24800674 Code(s): J15.7 - PNEUMONIA DUE TO MYCOPLASMA PNEUMONIAE Status: Acute Current Visit: Yes Qualifiers: Laterality: left Lung location: lower lobe of lung Qualified Code(s): J15.7 - Pneumonia due to Mycoplasma pneumoniae - Problem List Review Problem List Initiated/Reviewed/Updated: Yes - My Orders Last 24 Hours: My Active Orders 05/20/18 05:11 Chest 2V [CR] Routine 05/20/18 08:00 Ascorbic Acid [Vitamin C] 500 mg PO DAILY Ferrous Sulfate 325 mg PO WITHBREAKFAST 05/20/18 17:00 Azithromycin [Zithromax] 500 mg PO DAILY 05/21/18 05:11 CBC WITH AUTO DIFF [HEME] Routine CMP [COMPREHENSIVE METABOLIC PN,CMP] [CHEM] Routine CRP [C-REACTIVE PROTEIN] [CHEM] Routine PRO B-TYPE NATRIUR PEPT,BNPPRO [CHEM] Routine 05/21/18 08:00 Furosemide [Lasix] 40 mg IVPUSH BIDDIURETIC - Plan Plan:: Patient is admitted to the inpatient services, needing IV Lasix due to significantly elevated proBNP. Also known to have low hgb, needing further work- up. Cr leveled, will need monitoring with IV Lasix treatment. Elevated alk phos with recent elevation of PSA, needing bone scan to check for possible metastatic disease. Patient is NO CODE, agrees to be admitted to [facility]. Discussed the patient's condition with his son, Brady. will recheck labs in the morning. Telemetry on. Discussed with Dr Juarez. Connie Cuello,BARYTES GRINDER 05/15/18 Larry Soliz MD Had urinary retention last night with 800 cc retained urine. Leg edema decreased but still present. Continue IV lasix and valencia catheter. 05/16/18 Larry Soliz MD Continues to feel better. Pro-BNP continues to decrease. H/H noted. CRP has increased. More lasix. 05/17/18 Larry Soliz MD He is less short of breath. Labs noted. Will d/c valencia catheter and monitor for urinary retention.Renal ultrasound results pending. 05/18/18 Larry Soliz MD He feels fine. He wants to go home for his anniversary democrat. Valencia out and urinating satisfactorily. CXR improved pulmonary vascular congestion but shows new LLL pneumonia. Needs continued inpatient status to treat newly diagnosed pneumonia. He agrees. 05/19/18 Larry Soliz MD Continues on treatment for pneumonia and CHF. CRP not improved. 05/20/18 Larry Soliz MD Chest x-ray worsened. Mycoplasma +. Continue IV antibiotics and increase IV lasix.
[2018-05-20] MEDS: Azithromycin 250 MG Tab PO SCH (18:37)
[2018-05-20] MEDS: LORazepam 1 MG Tab PO SCH (19:50)
[2018-05-20] MEDS: atorvaSTATin 10 MG Tab PO SCH (19:50)
[2018-05-20] MEDS: Temazepam 15 MG Cap PO PRN (20:57)
[2018-05-21] MEDS: Acetaminophen 650 MG Tab.ER PO PRN (07:23)
[2018-05-21] MEDS: Ferrous Sulfate 325 MG Tab PO SCH (07:23)
[2018-05-21] MEDS: Meropenem 500 MG SDV IVPUSH SCH (07:23)
[2018-05-21] MEDS: Azithromycin 250 MG Tab PO SCH (07:23)
[2018-05-21] MEDS: Furosemide 40 MG/4 ML VIAL IVPUSH SCH ×2 (07:23→11:48)
[2018-05-21] MEDS: Tamsulosin 0.4 MG Cap.ER PO SCH (07:23)
[2018-05-21] MEDS: Albuterol/Ipratropium 3.0-0.5 MG/3 ML Neb Soln NEB SCH ×2 (07:23→11:48)
[2018-05-21] MEDS: Multivitamin Tab PO SCH (07:24)
[2018-05-21] MEDS: Ascorbic Acid 500 MG Tab PO SCH (07:24)
[2018-05-21] MEDS: Rivaroxaban 10 MG Tab PO SCH (07:24)
[2018-05-21] MEDS: Sodium Chloride 0.9% 10 ML Syringe FLUSH SCH (07:24)
[2018-05-21] MEDS: Metoprolol Succinate 50 MG Tab.ER PO SCH (07:24)
--- NOTE | 2018-05-21 15:18 | PCM.PN ---
- General Info Date of Service: 05/21/18 Admission Dx/Problem (Free Text): Admission Diagnosis/Problem Admission Diagnosis/Problem Congestive heart failure Functional Status: Reports: Pain Controlled, Tolerating Diet, Ambulating - Review of Systems General: Reports: No Symptoms HEENT: Reports: No Symptoms Pulmonary: Reports: No Symptoms Cardiovascular: Reports: No Symptoms Gastrointestinal: Reports: No Symptoms Genitourinary: Reports: No Symptoms Musculoskeletal: Reports: No Symptoms Skin: Reports: No Symptoms Neurological: Reports: No Symptoms Psychiatric: Reports: No Symptoms - Patient Data Vitals - Most Recent: Last Vital Signs Temp 97.1 F 05/21/18 12:00 Pulse 79 05/21/18 08:00 Resp 18 05/21/18 12:00 BP 121/55 L 05/21/18 12:00 Pulse Ox 97 05/21/18 12:00 Weight - Most Recent: 192 lb 8 oz I&O - Last 24 Hours: Intake & Output 05/21/18 05/21/18 05/21/18 06:59 14:59 22:59 Intake Total 300 840 Output Total 300 1000 Balance 0 -160 Lab Results Last 24 Hours: Laboratory Results - last 24 hr 05/16/18 05/20/18 05/21/18 Range/Units 06:50 17:00 06:58 WBC 8.8 (4.0-10.2) K/uL RBC 3.00 L (4.33-5.41) M/uL Hgb 8.9 L (13.1-16.8) g/dL Hct 26.8 L (39.0-49.0) % MCV 89.3 (84.0-98.0) fL MCH 29.7 (28.2-33.3) pg MCHC 33.2 (31.7-36.0) g/dL RDW 16.6 H (11.2-14.1) % Plt Count 319 (150-350) K/uL Neut % (Auto) 66.7 (45.0-80.0) % Lymph % (Auto) 15.4 (10.0-50.0) % [place] % (Auto) 12.6 (2.0-14.0) % Eos % (Auto) 5.2 H (0.0-5.0) % Baso % (Auto) 0.1 (0.0-2.0) % Neut # (Auto) 5.86 (1.40-7.00) K/uL Lymph # (Auto) 1.35 (0.50-3.50) K/uL [place] # (Auto) 1.11 H (0.00-1.00) K/uL Eos # (Auto) 0.46 (0.00-0.50) K/uL Baso # (Auto) 0.01 (0.00-0.20) K/uL Sodium (136-145) mmol/L Potassium (3.5-5.1) mmol/L Chloride (98-107) mmol/L Carbon Dioxide (21.0-32.0) mmol/L BUN (7-18) mg/dL Creatinine (0.51-1.17) mg/dL Est Cr Clr Drug Dosing mL/min Estimated GFR (MDRD) mL/min Glucose (74-106) mg/dL Calcium (8.5-10.1) mg/dL Total Bilirubin (0.2-1.0) mg/dL AST (15-37) U/L ALT (12-78) U/L Alkaline Phosphatase 276 H (39-117) IU/L Alk Phos Iso-Intestine 5 (0-18) % Alk Phos Iso-Bone 63 (12-68) % Alk Phos Iso-Liver 32 (13-88) % C-Reactive Protein (<=0.9) mg/dL NT-Pro-B Natriuret Pep (0-125) pg/mL Total Protein (6.4-8.2) g/dL Albumin (3.4-5.0) g/dL Specimen Type Urincc Urine Color Yellow Urine Appearance Clear Urine pH 5.5 (5.0-9.0) Ur Specific [place] 1.010 (1.005-1.030) Urine Protein Negative (NEGATIVE) mg/dL Urine Glucose (UA) Negative (NEGATIVE) mg/dL Urine Ketones Negative (NEGATIVE) mg/dL Urine Occult Blood Moderate H (NEGATIVE) Urine Nitrite Negative (NEGATIVE) Urine Bilirubin Negative (NEGATIVE) Urine Urobilinogen 0.2 (0.2-1.0) E.U./dL Ur Leukocyte Esterase Negative (NEGATIVE) Urine RBC 75-100 H /HPF Urine WBC 0-5 /HPF Ur Epithelial Cells Rare /LPF Urine Bacteria Rare (NONE TO FEW) /HPF 05/21/18 Range/Units 06:58 WBC (4.0-10.2) K/uL RBC (4.33-5.41) M/uL Hgb (13.1-16.8) g/dL Hct (39.0-49.0) % MCV (84.0-98.0) fL MCH (28.2-33.3) pg MCHC (31.7-36.0) g/dL RDW (11.2-14.1) % Plt Count (150-350) K/uL Neut % (Auto) (45.0-80.0) % Lymph % (Auto) (10.0-50.0) % [place] % (Auto) (2.0-14.0) % Eos % (Auto) (0.0-5.0) % Baso % (Auto) (0.0-2.0) % Neut # (Auto) (1.40-7.00) K/uL Lymph # (Auto) (0.50-3.50) K/uL [place] # (Auto) (0.00-1.00) K/uL Eos # (Auto) (0.00-0.50) K/uL Baso # (Auto) (0.00-0.20) K/uL Sodium 136 (136-145) mmol/L Potassium 4.7 (3.5-5.1) mmol/L Chloride 101 (98-107) mmol/L Carbon Dioxide 23.1 (21.0-32.0) mmol/L BUN 52 H (7-18) mg/dL Creatinine 1.40 H (0.51-1.17) mg/dL Est Cr Clr Drug Dosing 38.14 mL/min Estimated GFR (MDRD) 48 mL/min Glucose 93 (74-106) mg/dL Calcium 8.5 (8.5-10.1) mg/dL Total Bilirubin 0.4 (0.2-1.0) mg/dL AST 72 H (15-37) U/L ALT 54 (12-78) U/L Alkaline Phosphatase 304 H (39-117) IU/L Alk Phos Iso-Intestine (0-18) % Alk Phos Iso-Bone (12-68) % Alk Phos Iso-Liver (13-88) % C-Reactive Protein 7.3 H (<=0.9) mg/dL NT-Pro-B Natriuret Pep 62662 H (0-125) pg/mL Total Protein 6.9 (6.4-8.2) g/dL Albumin 2.4 L (3.4-5.0) g/dL Specimen Type Urine Color Urine Appearance Urine pH (5.0-9.0) Ur Specific [place] (1.005-1.030) Urine Protein (NEGATIVE) mg/dL Urine Glucose (UA) (NEGATIVE) mg/dL Urine Ketones (NEGATIVE) mg/dL Urine Occult Blood (NEGATIVE) Urine Nitrite (NEGATIVE) Urine Bilirubin (NEGATIVE) Urine Urobilinogen (0.2-1.0) E.U./dL Ur Leukocyte Esterase (NEGATIVE) Urine RBC /HPF Urine WBC /HPF Ur Epithelial Cells /LPF Urine Bacteria (NONE TO FEW) /HPF [place] Results Last 24 Hours: Microbiology 05/18/18 15:05 Aerobic Blood Culture - Preliminary Blood - Venous - Lab Draw NO GROWTH AFTER 2 DAYS Anaerobic Blood Culture - Preliminary NO GROWTH AFTER 2 DAYS 05/18/18 15:05 Aerobic Blood Culture - Preliminary Blood - Venous NO GROWTH AFTER 2 DAYS Anaerobic Blood Culture - Preliminary NO GROWTH AFTER 2 DAYS 05/19/18 07:00 Mycoplasma Serology - Final Blood Med Orders - Current: Current Medications Acetaminophen (Tylenol Arthritis Pain) 650 mg PO TID PRN PRN Reason: Pain Last Admin: 05/21/18 07:23 Dose: 650 mg Albuterol/Ipratropium (Duoneb 3.0-0.5 Mg/3 Ml) 3 ml NEB Q4H PRN PRN Reason: Dyspnea Albuterol/Ipratropium (Duoneb 3.0-0.5 Mg/3 Ml) 3 ml NEB QIDRT [facility] Last Admin: 05/21/18 11:48 Dose: 3 ml Ascorbic Acid (Vitamin C) 500 mg PO DAILY [facility] Last Admin: 05/21/18 07:24 Dose: 500 mg Atorvastatin Calcium (Lipitor) 10 mg PO BEDTIME [facility] Last Admin: 05/20/18 19:50 Dose: 10 mg Azithromycin (Zithromax) 500 mg PO DAILY [facility] Last Admin: 05/21/18 07:23 Dose: 500 mg Ferrous Sulfate (Ferrous Sulfate) 325 mg PO WITHBREAKFAST [facility] Last Admin: 05/21/18 07:23 Dose: 325 mg Furosemide (Lasix) 40 mg IVPUSH BIDDIURETIC [facility] Last Admin: 05/21/18 11:48 Dose: 40 mg Lorazepam (Ativan) 1 mg PO BEDTIME [facility] Last Admin: 05/20/18 19:50 Dose: 1 mg Meropenem (Merrem) 500 mg IVPUSH Q12HR [facility] Last Admin: 05/21/18 07:23 Dose: 500 mg Methyl Salicylate (Icy Hot Cream) 0 gm TOP Q6H PRN PRN Reason: Pain Last Admin: 05/20/18 20:58 Dose: 1 applic Metoprolol Succinate (Toprol Xl) 100 mg PO DAILY [facility] Last Admin: 05/21/18 07:24 Dose: 100 mg Multivitamins/Minerals/Vitamin C (Tab-A-Cathy) 1 tab PO DAILY [facility] Last Admin: 05/21/18 07:24 Dose: 1 tab Rivaroxaban (Xarelto) 15 mg PO DAILY [facility] Last Admin: 05/21/18 07:24 Dose: 15 mg Senna (Senna) 8.6 mg PO BID PRN PRN Reason: Constipation Last Admin: 05/20/18 20:57 Dose: 8.6 mg Sodium Chloride (Saline Flush) 10 ml FLUSH ASDIRECTED PRN PRN Reason: Keep Vein Open Last Admin: 05/20/18 18:38 Dose: 10 ml Sodium Chloride (Saline Flush) 10 ml FLUSH Q12HR [facility] Last Admin: 05/21/18 07:24 Dose: 10 ml Tamsulosin HCl (Flomax) 0.8 mg PO DAILY [facility] Last Admin: 05/21/18 07:23 Dose: 0.8 mg Temazepam (Restoril) 15 mg PO BEDTIME PRN PRN Reason: insomnia Last Admin: 05/20/18 20:57 Dose: 15 mg Discontinued Medications Furosemide (Lasix) 40 mg IVPUSH NOW ONE Stop: 05/14/18 17:04 Last Admin: 05/14/18 17:29 Dose: 40 mg Furosemide (Lasix) 40 mg IVPUSH DAILY [facility] Last Admin: 05/20/18 07:31 Dose: 40 mg Furosemide (Lasix) 40 mg IVPUSH NOW ONE Stop: 05/15/18 13:01 Last Admin: 09/13/18 13:30 Dose: 40 mg Furosemide (Lasix) 40 mg IVPUSH NOW ONE Stop: 05/16/18 16:01 Last Admin: 05/16/18 16:00 Dose: 40 mg Furosemide (Lasix) 40 mg IVPUSH NOW ONE Stop: 05/20/18 17:01 Last Admin: 05/20/18 18:37 Dose: 40 mg Azithromycin 500 mg/ Sodium (Chloride) 250 mls @ 250 mls/hr IV Q24H [facility] Stop: 05/20/18 15:59 Last Admin: 05/20/18 16:07 Dose: 250 mls/hr Neomycin/Polymyxin/Bacitracin (Triple Antibiotic Oint) 1 each TOP ONETIME ONE Stop: 05/17/18 19:06 Last Admin: 05/17/18 19:35 Dose: 1 each Tamsulosin HCl (Flomax) 0.4 mg PO DAILY [facility] Last Admin: 05/17/18 07:51 Dose: 0.4 mg - Exam Quality Assessment: DVT Prophylaxis (xaralto) General: Alert, Cooperative, No Acute Distress HEENT: Mucous Membr. Moist/[place] Neck: Trachea Midline, No JVD Lungs: Normal Respiratory Effort, Decreased Breath Sounds, Crackles (LLL) Cardiovascular: Regular Rate, Regular Rhythm GI/Abdominal Exam: Soft, Non-Tender (Male) Exam: Deferred Back Exam: Normal Inspection, Full Range of Motion Extremities: Non-Tender, Pedal Edema (stable) Skin: Warm, Dry, Intact Neurological: No New Focal Deficit Psy/Mental Status: Alert, Normal Affect, Normal Mood - Problem List & Annotations (1) Anemia SNOMED Code(s): 429721505 Code(s): D64.9 - ANEMIA, UNSPECIFIED Status: Acute Current Visit: Yes Qualifiers: Anemia type: due to chronic kidney disease Chronic kidney disease stage: unspecified stage Qualified Code(s): N18.9 - Chronic kidney disease, unspecified; D63.1 - Anemia in chronic kidney disease (2) Chronic renal disease SNOMED Code(s): 555179502 Code(s): N18.9 - CHRONIC KIDNEY DISEASE, UNSPECIFIED Status: Acute Current Visit: Yes Qualifiers: Chronic kidney disease stage: unspecified stage Qualified Code(s): N18.9 - Chronic kidney disease, unspecified (3) Congestive heart failure (CHF) SNOMED Code(s): 99009366 Code(s): I50.9 - HEART FAILURE, UNSPECIFIED Status: Acute Current Visit: Yes Qualifiers: Heart failure type: unspecified Heart failure chronicity: acute on chronic Qualified Code(s): I50.9 - Heart failure, unspecified Annotation/Comment:: known history of atrial flutter s/p ablation (4) Elevated alkaline phosphatase level SNOMED Code(s): 847126886 Code(s): R74.8 - ABNORMAL LEVELS OF OTHER SERUM ENZYMES Status: Acute Current Visit: Yes Annotation/Comment:: history of prostate cancer with elevated PSA over 45 (5) Prostate cancer SNOMED Code(s): 247350883 Code(s): C61 - MALIGNANT NEOPLASM OF PROSTATE Status: Acute Current Visit : Yes (6) Pneumonia SNOMED Code(s): 923516043 Code(s): J18.9 - PNEUMONIA, UNSPECIFIED ORGANISM Status: Acute Priority: High Current Visit: Yes Qualifiers: Pneumonia type: due to unspecified organism Laterality: left Lung location: lower lobe of lung Qualified Code(s): J18.1 - Lobar pneumonia, unspecified organism (7) Mycoplasma pneumoniae pneumonia SNOMED Code(s): 24733431 Code(s): J15.7 - PNEUMONIA DUE TO MYCOPLASMA PNEUMONIAE Status: Acute Current Visit: Yes Qualifiers: Laterality: left Lung location: lower lobe of lung Qualified Code(s): J15.7 - Pneumonia due to Mycoplasma pneumoniae - Problem List Review Problem List Initiated/Reviewed/Updated: Yes - My Orders Last 24 Hours: My Active Orders 05/20/18 17:00 Azithromycin [Zithromax] 500 mg PO DAILY 05/21/18 08:00 Furosemide [Lasix] 40 mg IVPUSH BIDDIURETIC 05/21/18 15:11 Ready for Discharge [RC] PER UNIT ROUTINE 05/21/18 15:12 Discontinue Saline Lock [Peripheral IV Discontinue] [OM.PC] Routine - Plan Plan:: Patient is admitted to the inpatient services, needing IV Lasix due to significantly elevated proBNP. Also known to have low hgb, needing further work- up. Cr leveled, will need monitoring with IV Lasix treatment. Elevated alk phos with recent elevation of PSA, needing bone scan to check for possible metastatic disease. Patient is NO CODE, agrees to be admitted to [facility]. Discussed the patient's condition with his son, Brady. will recheck labs in the morning. Telemetry on. Discussed with Dr Juarez. Connie Cuello,NATIONAL INVESTIGATIVE PRODUCER 05/15/18 Larry Soliz MD Had urinary retention last night with 800 cc retained urine. Leg edema decreased but still present. Continue IV lasix and valencia catheter. 05/16/18 Larry Soliz MD Continues to feel better. Pro-BNP continues to decrease. H/H noted. CRP has increased. More lasix. 05/17/18 Larry Soliz MD He is less short of breath. Labs noted. Will d/c valencia catheter and monitor for urinary retention.Renal ultrasound results pending. 05/18/18 Larry Soliz MD He feels fine. He wants to go home for his anniversary libertarian. [place] out and urinating satisfactorily. CXR improved pulmonary vascular congestion but shows new LLL pneumonia. Needs continued inpatient status to treat newly diagnosed pneumonia. He agrees. 05/19/18 Larry Soliz MD Continues on treatment for pneumonia and CHF. CRP not improved. 05/20/18 Larry Soliz MD Chest x-ray worsened. Mycoplasma +. Continue IV antibiotics and increase IV lasix. 05/21/18 Larry Soilz MD Clinically improved. Labs modest improvement. He really wants to go home. Will try home with oral medications and public health. Refusing home health.
--- NOTE | 2018-05-21 15:20 | PCM.DCSUM1 ---
Discharge Summary - Hospital Course Diagnosis: Stroke: No - Discharge Data Discharge Date: 05/21/18 Discharge Disposition: Home, Self-Care 01 Condition: Good - Discharge Diagnosis/Problem(s) (1) Anemia SNOMED Code(s): 512641148 ICD Code: D64.9 - ANEMIA, UNSPECIFIED Status: Acute Current Visit: Yes Qualifiers: Anemia type: due to chronic kidney disease Chronic kidney disease stage: unspecified stage Qualified Code(s): N18.9 - Chronic kidney disease, unspecified; D63.1 - Anemia in chronic kidney disease (2) Chronic renal disease SNOMED Code(s): 929836677 ICD Code: N18.9 - CHRONIC KIDNEY DISEASE, UNSPECIFIED Status: Acute Current Visit: Yes Qualifiers: Chronic kidney disease stage: unspecified stage Qualified Code(s): N18.9 - Chronic kidney disease, unspecified (3) Congestive heart failure (CHF) SNOMED Code(s): 28274225 ICD Code: I50.9 - HEART FAILURE, UNSPECIFIED Status: Acute Current Visit : Yes Problem Details: known history of atrial flutter s/p ablation Qualifiers: Heart failure type: unspecified Heart failure chronicity: acute on chronic Qualified Code(s): I50.9 - Heart failure, unspecified (4) Elevated alkaline phosphatase level SNOMED Code(s): 440993264 ICD Code: R74.8 - ABNORMAL LEVELS OF OTHER SERUM ENZYMES Status: Acute Current Visit: Yes Problem Details: history of prostate cancer with elevated PSA over 45 (5) Prostate cancer SNOMED Code(s): 537744395 ICD Code: C61 - MALIGNANT NEOPLASM OF PROSTATE Status: Acute Current Visit: Yes (6) Pneumonia SNOMED Code(s): 502149063 ICD Code: J18.9 - PNEUMONIA, UNSPECIFIED ORGANISM Status: Acute Priority : High Current Visit: Yes Qualifiers: Pneumonia type: due to unspecified organism Laterality: left Lung location: lower lobe of lung Qualified Code(s): J18.1 - Lobar pneumonia, unspecified organism (7) Mycoplasma pneumoniae pneumonia SNOMED Code(s): 61052468 ICD Code: J15.7 - PNEUMONIA DUE TO MYCOPLASMA PNEUMONIAE Status: Acute Current Visit: Yes Qualifiers: Laterality: left Lung location: lower lobe of lung Qualified Code(s): J15.7 - Pneumonia due to Mycoplasma pneumoniae - Patient Summary/Data Consults: Consultations 05/14/18 15:25 Consult to Case Management/Drywall Installer [CONS] Routine PT Evaluation and Treatment [CONS] Routine - Patient Instructions Diet: Heart Healthy Diet Activity: As Tolerated Driving: May Drive Today Showering/Bathing: May Shower Other/Special Instructions: Keep your appointments with [facility] (Dr. Reyez) and with [facility]. Follow up at [facility] as needed. - Discharge Plan *PRESCRIPTION DRUG MONITORING PROGRAM REVIEWED*: Not Applicable *COPY OF PRESCRIPTION DRUG MONITORING REPORT IN PATIENT JOSH: Not Applicable Prescriptions/Med Rec: Albuterol/Ipratropium [DuoNeb 3.0-0.5 MG/3 ML] 3 ml NEB Q4H PRN #30 neb PRN Reason: Dyspnea Albuterol/Ipratropium [DuoNeb 3.0-0.5 MG/3 ML] 3 ml NEB BID #60 neb Azithromycin [Zithromax] 500 mg PO Q24H #6 tab Ferrous Sulfate 325 mg PO WITHBREAKFAST #90 tablet LORazepam [Ativan] 1 mg PO BEDTIME #90 tablet Tamsulosin HCl 0.8 mg PO DAILY #30 cap.er.24h Home Medications: Home Meds Acetaminophen [Tylenol Arthritis] 650 mg PO TID 05/14/18 [History] Diclofenac Sodium [Diclofono] 2.5 gm TP BID 05/14/18 [History] Fish Oil/[place]-3 Fatty Acids [Fish Oil 1,000 MG] 1 gm PO DAILY 05/14/18 [History ] Furosemide 20 mg PO DAILY 05/14/18 [History] Metoprolol Succinate [Toprol XL 50mg] 100 mg PO DAILY 05/14/18 [History] Multivitamin [Multivitamins] 1 tab PO DAILY 05/14/18 [History] Rivaroxaban [Xarelto] 15 mg PO DAILY 05/14/18 [History] atorvaSTATin [Lipitor] 10 mg PO BEDTIME 05/14/18 [History] Albuterol/Ipratropium [DuoNeb 3.0-0.5 MG/3 ML] 3 ml NEB BID #60 neb 05/21/18 [Rx ] Albuterol/Ipratropium [DuoNeb 3.0-0.5 MG/3 ML] 3 ml NEB Q4H PRN #30 neb [Rx] Ascorbic Acid [Vitamin C] 500 mg PO DAILY tablet 05/21/18 [Rx] Azithromycin [Zithromax] 500 mg PO Q24H #6 tab 05/21/18 [Rx] Ferrous Sulfate 325 mg PO WITHBREAKFAST #90 tablet 05/21/18 [Rx] LORazepam [Ativan] 1 mg PO BEDTIME #90 tablet 05/21/18 [Rx] Menthol/Methyl Salicylate [Icy Hot] 0 gm TOP Q6H PRN tube 05/21/18 [Rx] Sennosides [Senna] 8.6 mg PO BID PRN tablet 05/21/18 [Rx] Tamsulosin HCl 0.8 mg PO DAILY #30 cap.er.24h 05/21/18 [Rx] Patient Handouts: Furosemide tablets, Heart Failure, [id number], Form - Daily Weight Record - Discharge Summary/Plan Comment DC Time >30 min.: No Discharge Summary/Plan Comment: [facility] Scan at [facility] on . - Patient Data Vitals - Most Recent: Last Vital Signs Temp 97.1 F 05/21/18 12:00 Pulse 79 05/21/18 08:00 Resp 18 05/21/18 12:00 BP 121/55 L 05/21/18 12:00 Pulse Ox 97 05/21/18 12:00 Weight - Most Recent: 192 lb 8 oz I&O - Last 24 hours: Intake & Output 05/21/18 05/21/18 05/21/18 06:59 14:59 22:59 Intake Total 300 840 Output Total 300 1000 Balance 0 -160 Lab Results - Last 24 hrs: Laboratory Results - last 24 hr 05/16/18 05/20/18 05/21/18 Range/Units 06:50 17:00 06:58 WBC 8.8 (4.0-10.2) K/uL RBC 3.00 L (4.33-5.41) M/uL Hgb 8.9 L (13.1-16.8) g/dL Hct 26.8 L (39.0-49.0) % MCV 89.3 (84.0-98.0) fL MCH 29.7 (28.2-33.3) pg MCHC 33.2 (31.7-36.0) g/dL RDW 16.6 H (11.2-14.1) % Plt Count 319 (150-350) K/uL Neut % (Auto) 66.7 (45.0-80.0) % Lymph % (Auto) 15.4 (10.0-50.0) % [place] % (Auto) 12.6 (2.0-14.0) % Eos % (Auto) 5.2 H (0.0-5.0) % Baso % (Auto) 0.1 (0.0-2.0) % Neut # (Auto) 5.86 (1.40-7.00) K/uL Lymph # (Auto) 1.35 (0.50-3.50) K/uL [place] # (Auto) 1.11 H (0.00-1.00) K/uL Eos # (Auto) 0.46 (0.00-0.50) K/uL Baso # (Auto) 0.01 (0.00-0.20) K/uL Sodium (136-145) mmol/L Potassium (3.5-5.1) mmol/L Chloride (98-107) mmol/L Carbon Dioxide (21.0-32.0) mmol/L BUN (7-18) mg/dL Creatinine (0.51-1.17) mg/dL Est Cr Clr Drug Dosing mL/min Estimated GFR (MDRD) mL/min Glucose (74-106) mg/dL Calcium (8.5-10.1) mg/dL Total Bilirubin (0.2-1.0) mg/dL AST (15-37) U/L ALT (12-78) U/L Alkaline Phosphatase 276 H (39-117) IU/L Alk Phos Iso-Intestine 5 (0-18) % Alk Phos Iso-Bone 63 (12-68) % Alk Phos Iso-Liver 32 (13-88) % C-Reactive Protein (<=0.9) mg/dL NT-Pro-B Natriuret Pep (0-125) pg/mL Total Protein (6.4-8.2) g/dL Albumin (3.4-5.0) g/dL Specimen Type Urincc Urine Color Yellow Urine Appearance Clear Urine pH 5.5 (5.0-9.0) Ur Specific [place] 1.010 (1.005-1.030) Urine Protein Negative (NEGATIVE) mg/dL Urine Glucose (UA) Negative (NEGATIVE) mg/dL Urine Ketones Negative (NEGATIVE) mg/dL Urine Occult Blood Moderate H (NEGATIVE) Urine Nitrite Negative (NEGATIVE) Urine Bilirubin Negative (NEGATIVE) Urine Urobilinogen 0.2 (0.2-1.0) E.U./dL Ur Leukocyte Esterase Negative (NEGATIVE) Urine RBC 75-100 H /HPF Urine WBC 0-5 /HPF Ur Epithelial Cells Rare /LPF Urine Bacteria Rare (NONE TO FEW) /HPF 05/21/18 Range/Units 06:58 WBC (4.0-10.2) K/uL RBC (4.33-5.41) M/uL Hgb (13.1-16.8) g/dL Hct (39.0-49.0) % MCV (84.0-98.0) fL MCH (28.2-33.3) pg MCHC (31.7-36.0) g/dL RDW (11.2-14.1) % Plt Count (150-350) K/uL Neut % (Auto) (45.0-80.0) % Lymph % (Auto) (10.0-50.0) % [place] % (Auto) (2.0-14.0) % Eos % (Auto) (0.0-5.0) % Baso % (Auto) (0.0-2.0) % Neut # (Auto) (1.40-7.00) K/uL Lymph # (Auto) (0.50-3.50) K/uL [place] # (Auto) (0.00-1.00) K/uL Eos # (Auto) (0.00-0.50) K/uL Baso # (Auto) (0.00-0.20) K/uL Sodium 136 (136-145) mmol/L Potassium 4.7 (3.5-5.1) mmol/L Chloride 101 (98-107) mmol/L Carbon Dioxide 23.1 (21.0-32.0) mmol/L BUN 52 H (7-18) mg/dL Creatinine 1.40 H (0.51-1.17) mg/dL Est Cr Clr Drug Dosing 38.14 mL/min Estimated GFR (MDRD) 48 mL/min Glucose 93 (74-106) mg/dL Calcium 8.5 (8.5-10.1) mg/dL Total Bilirubin 0.4 (0.2-1.0) mg/dL AST 72 H (15-37) U/L ALT 54 (12-78) U/L Alkaline Phosphatase 304 H (39-117) IU/L Alk Phos Iso-Intestine (0-18) % Alk Phos Iso-Bone (12-68) % Alk Phos Iso-Liver (13-88) % C-Reactive Protein 7.3 H (<=0.9) mg/dL NT-Pro-B Natriuret Pep 64906 H (0-125) pg/mL Total Protein 6.9 (6.4-8.2) g/dL Albumin 2.4 L (3.4-5.0) g/dL Specimen Type Urine Color Urine Appearance Urine pH (5.0-9.0) Ur Specific [place] (1.005-1.030) Urine Protein (NEGATIVE) mg/dL Urine Glucose (UA) (NEGATIVE) mg/dL Urine Ketones (NEGATIVE) mg/dL Urine Occult Blood (NEGATIVE) Urine Nitrite (NEGATIVE) Urine Bilirubin (NEGATIVE) Urine Urobilinogen (0.2-1.0) E.U./dL Ur Leukocyte Esterase (NEGATIVE) Urine RBC /HPF Urine WBC /HPF Ur Epithelial Cells /LPF Urine Bacteria (NONE TO FEW) /HPF NIGEL Results - Last 24 hrs: Microbiology 05/18/18 15:05 Aerobic Blood Culture - Preliminary Blood - Venous - Lab Draw NO GROWTH AFTER 3 DAYS Anaerobic Blood Culture - Preliminary NO GROWTH AFTER 3 DAYS 05/18/18 15:05 Aerobic Blood Culture - Preliminary Blood - Venous NO GROWTH AFTER 3 DAYS Anaerobic Blood Culture - Preliminary NO GROWTH AFTER 3 DAYS 05/19/18 07:00 Mycoplasma Serology - Final Blood Med Orders - Current: Current Medications Acetaminophen (Tylenol Arthritis Pain) 650 mg PO TID PRN PRN Reason: Pain Last Admin: 05/21/18 07:23 Dose: 650 mg Albuterol/Ipratropium (Duoneb 3.0-0.5 Mg/3 Ml) 3 ml NEB Q4H PRN PRN Reason: Dyspnea Albuterol/Ipratropium (Duoneb 3.0-0.5 Mg/3 Ml) 3 ml NEB QIDRT GREG Last Admin: 05/21/18 11:48 Dose: 3 ml Ascorbic Acid (Vitamin C) 500 mg PO DAILY [facility] Last Admin: 05/21/18 07:24 Dose: 500 mg Atorvastatin Calcium (Lipitor) 10 mg PO BEDTIME [facility] Last Admin: 05/20/18 19:50 Dose: 10 mg Azithromycin (Zithromax) 500 mg PO DAILY [facility] Last Admin: 05/21/18 07:23 Dose: 500 mg Ferrous Sulfate (Ferrous Sulfate) 325 mg PO WITHBREAKFAST [facility] Last Admin: 05/21/18 07:23 Dose: 325 mg Furosemide (Lasix) 40 mg IVPUSH BIDDIURETIC [facility] Last Admin: 05/21/18 11:48 Dose: 40 mg Lorazepam (Ativan) 1 mg PO BEDTIME [facility] Last Admin: 05/20/18 19:50 Dose: 1 mg Meropenem (Merrem) 500 mg IVPUSH Q12HR [facility] Last Admin: 05/21/18 07:23 Dose: 500 mg Methyl Salicylate (Icy Hot Cream) 0 gm TOP Q6H PRN PRN Reason: Pain Last Admin: 05/20/18 20:58 Dose: 1 applic Metoprolol Succinate (Toprol Xl) 100 mg PO DAILY [facility] Last Admin: 05/21/18 07:24 Dose: 100 mg Multivitamins/Minerals/Vitamin C (Tab-A-Cathy) 1 tab PO DAILY [facility] Last Admin: 05/21/18 07:24 Dose: 1 tab Rivaroxaban (Xarelto) 15 mg PO DAILY [facility] Last Admin: 05/21/18 07:24 Dose: 15 mg Senna (Senna) 8.6 mg PO BID PRN PRN Reason: Constipation Last Admin: 05/20/18 20:57 Dose: 8.6 mg Sodium Chloride (Saline Flush) 10 ml FLUSH ASDIRECTED PRN PRN Reason: Keep Vein Open Last Admin: 05/20/18 18:38 Dose: 10 ml Sodium Chloride (Saline Flush) 10 ml FLUSH Q12HR [facility] Last Admin: 05/21/18 07:24 Dose: 10 ml Tamsulosin HCl (Flomax) 0.8 mg PO DAILY [facility] Last Admin: 05/21/18 07:23 Dose: 0.8 mg Temazepam (Restoril) 15 mg PO BEDTIME PRN PRN Reason: insomnia Last Admin: 05/20/18 20:57 Dose: 15 mg Discontinued Medications Furosemide (Lasix) 40 mg IVPUSH NOW ONE Stop: 05/14/18 17:04 Last Admin: 05/14/18 17:29 Dose: 40 mg Furosemide (Lasix) 40 mg IVPUSH DAILY [facility] Last Admin: 05/20/18 07:31 Dose: 40 mg Furosemide (Lasix) 40 mg IVPUSH NOW ONE Stop: 05/15/18 13:01 Last Admin: 05/15/18 13:30 Dose: 40 mg Furosemide (Lasix) 40 mg IVPUSH NOW ONE Stop: 05/16/18 16:01 Last Admin: 05/16/18 16:00 Dose: 40 mg Furosemide (Lasix) 40 mg IVPUSH NOW ONE Stop: 05/20/18 17:01 Last Admin: 05/20/18 18:37 Dose: 40 mg Azithromycin 500 mg/ Sodium (Chloride) 250 mls @ 250 mls/hr IV Q24H GREG Stop: 05/20/18 15:59 Last Admin: 05/20/18 16:07 Dose: 250 mls/hr Neomycin/Polymyxin/Bacitracin (Triple Antibiotic Oint) 1 each TOP ONETIME ONE Stop: 05/17/18 19:06 Last Admin: 05/17/18 19:35 Dose: 1 each Tamsulosin HCl (Flomax) 0.4 mg PO DAILY [facility] Last Admin: 05/17/18 07:51 Dose: 0.4 mg
== END 2018-05-21 16:05 | disposition home or self-care (01) | DRG 291 ==
LOC: LL.MS 15:25 → UNDOADMIN 15:25 → LL.MS 16:09
PROVIDERS: ADMIT Nurse Practitioner Family; ATTEND Family Medicine
DX: I13.0 Hypertensive heart and chronic kidney disease with heart failure and stage 1 through stage 4 chronic kidney disease, or unspecified chronic kidney disease (principal); J15.7 Pneumonia due to Mycoplasma pneumoniae; I48.92 Unspecified atrial flutter; I50.9 Heart failure, unspecified; N18.9 Chronic kidney disease, unspecified; D63.1 Anemia in chronic kidney disease; R74.8 Abnormal levels of other serum enzymes; Z66 Do not resuscitate; C61 Malignant neoplasm of prostate; K21.9 Gastro-esophageal reflux disease without esophagitis; N40.0 Benign prostatic hyperplasia without lower urinary tract symptoms; M19.90 Unspecified osteoarthritis, unspecified site; Z91.14 Patient's other noncompliance with medication regimen; I27.20 Pulmonary hypertension, unspecified; Z79.899 Other long term (current) drug therapy; Z82.49 Family history of ischemic heart disease and other diseases of the circulatory system
CPT/HCPCS: 36415; 51702; 51798; 71046; 76770; 80048; 80053; 81001; 82272; 82607; 82728; 82746; 82962; 83540; 83550; 83880; 84075; 84080; 84484; 85008; 85025; 85610; 86140; 86738; 87040; 87086; 93005; 94640; 97161-GP; 97530-GP; A9270-GY; J0456; J1940; J2185; J7050; J7620-GY

== ENCOUNTER 2018-05-27 07:54 | Emergency (ER) | payer MEDICARE, OTHER ==
[2018-05-27] MEDS ORDERED: Ondansetron 4 MG/2 ML SDV IVPUSH ONE (10:10)
--- NOTE | 2018-05-27 11:29 | EDM.PDOC ---
ED HPI GENERAL MEDICAL PROBLEM - General Chief Complaint: Abdominal Pain Stated Complaint: Constipation Time Seen by Provider: 05/27/18 08:26 Source of Information: Reports: Patient History Limitations: Reports: No Limitations - History of Present Illness INITIAL COMMENTS - FREE TEXT/NARRATIVE: Patient comes to ER via EMS for complaint of RLQ abdominal pain. Has been present for 2 days. Reports no bowel movement for 2 days, feels constipated. Took Miralax this morning. No radiation of pain. No other new pain complaint. Has had some nausea with this plus episode of emesis. No urinary changes. Denies fevers/chills. No HEENT/CV/Resp/Neuro/ changes. No other new complaints. Denies weight changes. History of prostate cancer. [facility] [place] disease however patient has been noncompliant in care. Was supposed to have bone scan recently but canceled it. Refuses to see Cardiology for follow up of his chronic CV issues. Has been noted to have ongoing hematuria, increasing PSA, as well as dropping HGB. He admits to not taking various prescription medications regularly. Right Abdominal Pain Score (Numeric/FACES): 4 - Related Data Allergies Allergy/AdvReac Type Severity Reaction Status Date / Time cephalexin Allergy Cannot Verified 05/27/18 08:16 Remember Penicillins Allergy Cannot Verified 05/27/18 08:16 Remember tramadol Allergy Cannot Verified 05/27/18 08:16 Remember Home Meds: Home Meds Acetaminophen [Tylenol Arthritis] 650 mg PO TID 05/14/18 [History] Diclofenac Sodium [Diclofono] 2.5 gm TP BID 05/14/18 [History] Fish Oil/[place]-3 Fatty Acids [Fish Oil 1,000 MG] 1 gm PO DAILY 05/14/18 [History ] Furosemide 20 mg PO DAILY 05/14/18 [History] Metoprolol Succinate [Toprol XL 50mg] 100 mg PO DAILY 05/14/18 [History] Multivitamin [Multivitamins] 1 tab PO DAILY 05/14/18 [History] Rivaroxaban [Xarelto] 15 mg PO DAILY 05/14/18 [History] atorvaSTATin [Lipitor] 10 mg PO BEDTIME 05/14/18 [History] Albuterol/Ipratropium [DuoNeb 3.0-0.5 MG/3 ML] 3 ml NEB BID #60 neb 05/21/18 [Rx ] Albuterol/Ipratropium [DuoNeb 3.0-0.5 MG/3 ML] 3 ml NEB Q4H PRN #30 neb [Rx] Ascorbic Acid [Vitamin C] 500 mg PO DAILY tablet 05/21/18 [Rx] Ferrous Sulfate 325 mg PO WITHBREAKFAST #90 tablet 05/21/18 [Rx] LORazepam [Ativan] 1 mg PO BEDTIME #90 tablet 05/21/18 [Rx] Menthol/Methyl Salicylate [Icy Hot] 0 gm TOP Q6H PRN tube 05/21/18 [Rx] Sennosides [Senna] 8.6 mg PO BID PRN tablet 05/21/18 [Rx] Tamsulosin HCl 0.8 mg PO DAILY #30 cap.er.24h 05/21/18 [Rx] Past Medical History HEENT History: Reports: Hard of Hearing Cardiovascular History: Reports: Afib, Heart Murmur, High Cholesterol, Hypertension, SOB on Exertion Other Cardiovascular History: atrial flutter s/p cardiac ablation, Respiratory History: Reports: SOB Gastrointestinal History: Reports: GERD Genitourinary History: Reports: BPH, Prostate Disorder, Renal Disease Musculoskeletal History: Reports: Arthritis Psychiatric History: Reports: Other (See Below) Hematologic History: Reports: Anemia Oncologic (Cancer) History: Reports: Prostate - Past Surgical History Cardiovascular Surgical History: Reports: Cardiac Ablation GI Surgical History: Reports: Hernia, Inguinal Social & Family History - Family History Cardiac: Reports: Hypertension - Tobacco Use Smoking Status *Q: Never Smoker Second Hand Smoke Exposure: No - Caffeine Use Caffeine Use: Reports: Coffee - Recreational Drug Use Recreational Drug Use: No ED ROS GENERAL - Review of Systems Review Of Systems: See Below Constitutional: Reports: No Symptoms. Denies: Fever, Chills, Night Sweats, Diaphoresis HEENT: Reports: No Symptoms (no acute changes) Respiratory: Reports: No Symptoms. Denies: Shortness of Breath Cardiovascular: Reports: No Symptoms. Denies: Chest Pain GI/Abdominal: Reports: Abdominal Pain, Constipation, Distension (patient feels that abdomen is more rounded than usual), Nausea, Vomiting. Denies: Black Stool , Bloody Stool, Diarrhea, Difficulty Swallowing, Hematemesis, Hematochezia : Reports: No Symptoms. Denies: Dysuria, Flank Pain, Frequency, Hematuria Musculoskeletal: Reports: No Symptoms (no acute changes from baseline) Skin: Reports: No Symptoms Neurological: Reports: No Symptoms Psychiatric: Reports: No Symptoms Hematologic/Lymphatic: Reports: No Symptoms ED EXAM, GI/ABD - Physical Exam Exam: See Below Exam Limited By: No Limitations General Appearance: Alert, WD/WN, No Apparent Distress Eyes: Bilateral: Normal Appearance, EOMI Ears: Normal External Exam Nose: No: Nasal Deformity, Nasal Swelling, Nasal Drainage Throat/Mouth: Normal Lips, Normal Voice, No Airway Compromise Head: Atraumatic, Normocephalic Neck: Normal Inspection, Supple, Non-Tender, Full Range of Motion. No: Lymphadenopathy (L), Lymphadenopathy (R) Respiratory/Chest: No Respiratory Distress, Lungs Clear, Normal Breath Sounds, No Accessory Muscle Use, Chest Non-Tender Cardiovascular: Normal Peripheral Pulses, Regular Rate, Rhythm, No Murmur GI/Abdominal Exam: Soft, Abnormal Bowel Sounds (slighlty decreased throughout), Other (rounded). No: No Abnormal Bruit (Male) Exam: Normal Inspection Rectal (Males) Exam: Normal Rectal Tone, Heme - Stool Back Exam: Normal Inspection. No: CVA Tenderness (L), CVA Tenderness (R), Muscle Spasm, Paraspinal Tenderness, Vertebral Tenderness Extremities: Non-Tender, Normal Capillary Refill Neurological: Alert, Oriented, Normal Cognition, Other (equal tone and strength symmetrically) Psychiatric: Normal Affect, Normal Mood Skin Exam: Warm, Dry, Intact, Normal Color Course - Vital Signs Last Recorded V/S: Last Vital Signs Temp 36.8 C 05/27/18 07:59 Pulse 73 05/27/18 12:11 Resp 16 05/27/18 12:11 BP 133/61 05/27/18 12:11 Pulse Ox 99 05/27/18 12:11 - Orders/Labs/Meds Orders: Active Orders 24 hr Category Date Time Status Abdomen 2V AP Flat Upright [CR] Stat Exams 05/27/18 08:13 Taken Abdomen Pelvis w Cont [CT] Stat Exams 05/27/18 09:03 Taken Labs: Laboratory Tests 05/27/18 05/27/18 05/27/18 Range/Units 08:20 08:20 08:41 WBC 11.5 H (4.0-10.2) K/uL RBC 2.73 L (4.33-5.41) M/uL Hgb 8.1 L (13.1-16.8) g/dL Hct 24.6 L* (39.0-49.0) % MCV 90.1 (84.0-98.0) fL MCH 29.7 (28.2-33.3) pg MCHC 32.9 (31.7-36.0) g/dL RDW 16.2 H (11.2-14.1) % Plt Count 349 (150-350) K/uL Neut % (Auto) 83.9 H (45.0-80.0) % Lymph % (Auto) 6.3 L (10.0-50.0) % [place] % (Auto) 9.6 (2.0-14.0) % Eos % (Auto) 0.1 (0.0-5.0) % Baso % (Auto) 0.1 (0.0-2.0) % Neut # (Auto) 9.65 H (1.40-7.00) K/uL Lymph # (Auto) 0.73 (0.50-3.50) K/uL [place] # (Auto) 1.10 H (0.00-1.00) K/uL Eos # (Auto) 0.01 (0.00-0.50) K/uL Baso # (Auto) 0.01 (0.00-0.20) K/uL Sodium 134 L (136-145) mmol/L Potassium 4.7 (3.5-5.1) mmol/L Chloride 102 (98-107) mmol/L Carbon Dioxide 19.7 L (21.0-32.0) mmol/L BUN 51 H (7-18) mg/dL Creatinine 1.78 H (0.51-1.17) mg/dL Est Cr Clr Drug Dosing 29.89 mL/min Estimated GFR (MDRD) 37 mL/min Glucose 125 H (74-106) mg/dL Calcium 8.7 (8.5-10.1) mg/dL Total Bilirubin 0.6 (0.2-1.0) mg/dL AST 52 H (15-37) U/L ALT 71 (12-78) U/L Alkaline Phosphatase 344 H (46-116) IU/L Total Protein 6.9 (6.4-8.2) g/dL Albumin 2.5 L (3.4-5.0) g/dL Specimen Type Urinvoid Urine Color Dark yellow Urine Appearance Slightly cloudy Urine pH 5.5 (5.0-9.0) Ur Specific [place] 1.020 (1.005-1.030) Urine Protein 30 H (NEGATIVE) mg/dL Urine Glucose (UA) Negative (NEGATIVE) mg/dL Urine Ketones Negative (NEGATIVE) mg/dL Urine Occult Blood Large H (NEGATIVE) Urine Nitrite Negative (NEGATIVE) Urine Bilirubin Negative (NEGATIVE) Urine Urobilinogen 0.2 (0.2-1.0) E.U./dL Ur Leukocyte Esterase Trace H (NEGATIVE) Urine RBC >100 H /HPF Urine WBC 5-10 H /HPF Ur Epithelial Cells Few /LPF Urine Bacteria Few (NONE TO FEW) /HPF Meds: Medications Discontinued Medications Generic Name Dose Route Start Last Admin Trade Name Freq PRN Reason Stop Dose Admin Acetaminophen 650 mg 05/27/18 11:46 05/27/18 12:07 Tylenol Arthritis Pain PO 05/27/18 11:47 650 mg ONETIME ONE Administration Ondansetron HCl 4 mg 05/27/18 10:10 05/27/18 10:14 Zofran IVPUSH 05/27/18 10:11 4 mg ONETIME ONE Administration - Radiology Interpretation Free Text/Narrative:: No acute obstruction noted on abdominal films. CT Results Date: 05/27/18 CT Results Time: 11:39 (Fluid noted around liver, moderate fluid bilateral pelvis. Right kidney hydroneprosis but no obvious obstructing calculus. ) - Re-Assessments/Exams Free Text/Narrative Re-Assessment/Exam: CBC showed mild increased in WBC. Hgb and Hct noted to be trending downward over the past month, with today's HGB 8.1, and HCT 24.6. Hgb on 05/18 was 9.6 HCT on 05/18 was 29 Renal function also appearing to become more compromised. Creatinine 1.35 on , now 1.78 BUN increased from 39 to 51 Alk phos increased to 344 from 304 Hematuria >100 RBC/HPF. Two previous UAs also showed hematuria over the previous month. CT scan ordered with Radiology review noted above. Patient requested to take his regular dose of Tylenol Arthritis. Did not wish to have any additional pain medication at this time. Call placed to [place] to discuss possible transfer given patient's worsening labs/renal function/anemia/hematuria. Free Text/Narrative Re-Assessment/Exam: 05/27/18 12:22 Accepted for transfer to [facility] in [place] for continued care by , hospitalist. suspects that lab changes/hydronephrosis/hematuria and abdominal discomfort likely reflect metastatic disease. Patient is willing to be evaluated there after discussing lab trends and concerns with patient. Departure - Departure Time of Disposition: 13:45 Disposition: DC/Tfer to [facility] 02 Condition: Good Clinical Impression: Prostate cancer, Elevated alkaline phosphatase level Abdominal pain Qualifiers: Abdominal location: right lower quadrant Qualified Code(s): R10.31 - Right lower quadrant pain Chronic renal disease Qualifiers: Chronic kidney disease stage: unspecified stage Qualified Code(s): N18.9 - Chronic kidney disease, unspecified Anemia Qualifiers: Anemia type: due to chronic kidney disease Chronic kidney disease stage: unspecified stage Qualified Code(s): N18.9 - Chronic kidney disease, unspecified Hematuria Qualifiers: Hematuria type: unspecified type Qualified Code(s): R31.9 - Hematuria, unspecified Hydronephrosis Qualifiers: Hydronephrosis type: unspecified Qualified Code(s): N13.30 - Unspecified hydronephrosis - Discharge Information *PRESCRIPTION DRUG MONITORING PROGRAM REVIEWED*: Not Applicable *COPY OF PRESCRIPTION DRUG MONITORING REPORT IN PATIENT JOSH: Not Applicable Referrals: Inge Zafar MD [Primary Care Provider] - Forms: ED Department Discharge - My Orders Last 24 Hours: My Active Orders 05/27/18 08:13 Abdomen 2V AP Flat Upright [CR] Stat 05/27/18 09:03 Abdomen Pelvis w Cont [CT] Stat - Assessment/Plan Last 24 Hours: My Active Orders 05/27/18 08:13 Abdomen 2V AP Flat Upright [CR] Stat 05/27/18 09:03 Abdomen Pelvis w Cont [CT] Stat
[2018-05-27] MEDS ORDERED: Acetaminophen 650 MG Tab.ER PO ONE (11:46)
== END 2018-05-27 14:00 ==
LOC: LL.ED 07:54
DX: N13.2 Hydronephrosis with renal and ureteral calculous obstruction (principal); I12.9 Hypertensive chronic kidney disease with stage 1 through stage 4 chronic kidney disease, or unspecified chronic kidney disease; D63.1 Anemia in chronic kidney disease; N18.9 Chronic kidney disease, unspecified; C61 Malignant neoplasm of prostate; R31.9 Hematuria, unspecified; R74.8 Abnormal levels of other serum enzymes; E78.00 Pure hypercholesterolemia, unspecified; K21.9 Gastro-esophageal reflux disease without esophagitis; Z88.1 Allergy status to other antibiotic agents; Z79.899 Other long term (current) drug therapy
CPT/HCPCS: 36415; 74019; 74177; 80053; 81001; 82272; 85025; 96374; 99285; A9270-GY; J2405